=== PATIENT | female | born 1950 | race African-American/Black ===

== ENCOUNTER 2020-03-19 13:46 | IRF | payer OTHER, MEDICARE, SELFPAY ==
--- NOTE | ~2020-03-19 | CT_ITS ---
EXAMINATION: CT brain wo con DATE: 03/27/2020 09:38 INDICATION: Lethargy. TECHNIQUE: Computed tomography (CT) of the head was performed without intravenous contrast. The mA wa s adjusted according to patient size. Iterative reconstruction technique was employed. The dose-lengt h product was 605.33 mGy-cm. COMPARISON: None FINDINGS: There is a hyperdense acute intraparenchymal hematoma centered in the right basal ganglia w ith surrounding vasogenic edema. There is swelling of this area of the brain. There are old lacunar i nfarcts in the bilateral caudate nuclei. There are scattered areas of low attenuation in the cerebral white matter. There is no acute ischemic infarct. There is mass effect on right lateral ventricle an d third ventricle. There is 6 mm leftward midline shift at the foramen of Monro. The paranasal sinuse s are clear. The orbits are normal. The mastoid air cells are normal. IMPRESSION: 1. Acute intraparenchymal hematoma involving the right basal ganglia with 6 mm leftward midline shift . 2. Old lacunar infarcts in the bilateral caudate nuclei. 3. Moderate nonspecific cerebral white matter disease, which likely represents chronic small vessel i schemic disease. Reviewed, dictated and finalized at location A. IMPRESSION: 1. Acute intraparenchymal hematoma involving the right basal ganglia with 6 mm leftward midline shift. 2. Old lacunar infarcts in the bilateral caudate nuclei. 3. Moderate nonspecific cerebral white matter disease, which likely represents chronic small vessel ischemic disease.
--- NOTE | ~2020-03-19 | US_ITS ---
EXAMINATION: US venous doppler [facility] DATE: 04/06/2020 14:17 INDICATION: Lower limb pain and swelling TECHNIQUE: Grayscale ultrasound images without and with compression and Doppler ultrasound images of the bilateral lower extremity veins were obtained. COMPARISON: None. FINDINGS: The visualized portions of right common femoral vein, profunda (deep) femoral vein, femoral vein, pop liteal vein, posterior tibial veins, peroneal veins, gastrocnemius vein and greater saphenous vein ou tflow are patent. One of the paired peroneal veins at the left calf is distended with hypoechoic noncompressible occlus mckay appearing deep venous thrombosis. The second left peroneal vein along with the visualized portion s of left common femoral vein, profunda femoral vein, femoral vein, popliteal vein, posterior tibial veins, gastrocnemius vein and greater saphenous vein outflow are patent. IMPRESSION: 1. Deep venous thrombosis below the knee in one of the paired left peroneal veins of the calf. Findi ngs were discussed with Sarina Perry, the nurse caring for the patient, at 2:25 PM. 2. No right lower limb deep venous thrombosis. Reviewed, dictated and finalized at location A. IMPRESSION: 1. Deep venous thrombosis below the knee in one of the paired left peroneal ve ins of the calf. Findings were discussed with Sarina Perry, the nurse caring for the patient, at 2:25 PM. 2. No right lower limb deep venous thrombosis.
--- NOTE | ~2020-03-19 | CT_ITS ---
EXAMINATION: CT brain wo con DATE: 04/05/2020 09:48 INDICATION: History of CVA. TECHNIQUE: Computed tomography (CT) of the head was performed without intravenous contrast. The dose- length product was 605.33 mGy-cm. The mA was adjusted according to patient size. Iterative reconstruc tion technique was employed. COMPARISON: CT dated 03/27/2020 FINDINGS: There is a maturing intraparenchymal hemorrhage centered in the right basal ganglia with mi ldly decreased surrounding vasogenic edema and mass effect. There is persistent leftward midline shif t, although slightly decreased now measuring 5 mm leftward of midline. Basilar cisterns are patent. T here are scattered moderate periventricular and subcortical white matter changes, most likely related to small vessel ischemic disease (microangiopathy). Chr bilateral lacunar infarctions. Chronic right thalamic infarct. Mild generalized atrophy. No ventriculomegaly. There is intracranial atheroscleros is. Paranasal sinuses and mastoids are pneumatized. No depressed skull fractures. IMPRESSION: 1. Maturing intraparenchymal hemorrhage centered in the right basal ganglia with slight improvement o f surrounding vasogenic edema and mass effect. Persistent midline shift measuring 5 mm to the left. 2: Chronic right thalamic and bilateral lacunar infarctions. 3: Chronic age-related findings. Reviewed, dictated and finalized at location A. IMPRESSION: 1. Maturing intraparenchymal hemorrhage centered in the right basal ganglia wit h slight improvement of surrounding vasogenic edema and mass effect. Persistent midline shift measuring 5 mm to the left. 2: Chronic right thalamic and bilateral lacunar infarctions. 3: Chronic age-related findings.
--- NOTE | ~2020-03-19 | XR_ITS ---
EXAMINATION: XR abdomen/kub 1V INDICATION: PEG tube placement TECHNIQUE: Supine view of the abdomen is obtained COMPARISON: None FINDINGS: A percutaneous gastrostomy projects over the stomach. The bowel gas pattern is normal. Ente zhang contrast from an unknown previous examination is seen in the colon. IMPRESSION: 1. PEG tube projecting over the stomach. Reviewed, dictated and finalized at location A.
[2020-03-19 14:00] VITALS: BP 138/56; PULSE 68; RESP 18; TEMP 36.6; O2SAT 97
[2020-03-19 14:04] VITALS: BMI 28.8
--- NOTE | 2020-03-19 15:22 | ADMGEN ---
This patient, Maxine Fountain, was admitted to [facility] Room 221-01. Patient/family oriented to hospital policies and general routines including ID bracelet, bed and alarms, visiting hours, pain management, procedures, bathroom and other care routines, personal items, smoking policy, room service/diet, and visiting hours. Valuables list has been completed. Information on how to activate the Rapid Response Team has been discussed. Patient/Family are encouraged to report perceived risks to care and to ask questions if they do not understand what they are told or what they should do.
[2020-03-19 16:15] VITALS: PULSE 68; RESP 18; O2SAT 97
--- NOTE | 2020-03-19 17:36 | PC.NURSE ---
Called and talked with Dr. Sanchez Radiologist to ask about KUB result. Wanted to see if nursing could use the peg tube for tube feedings and he clarified and said yes peg tube was in the stomach.
[2020-03-19 17:47] VITALS: PULSE 68
[2020-03-19] MEDS: ACETAMINOPHEN ELIXIR 325 MG/10.15 ML UDC 650 MG FEED TUBE (17:47)
[2020-03-19] MEDS: carvediloL 25 MG TABLET FEED TUBE (17:47)
--- NOTE | 2020-03-19 18:09 | PC.NURSE ---
Patient is unable to answer questions regarding family history. states she doesn't remember.
[2020-03-19 20:37] LABS: Glucose Point of Care 173 (65-105)
[2020-03-19] MEDS: HEPARIN SODIUM 5,000 UNITS/ML VIAL 5000 UNITS SUB-Q (21:01)
[2020-03-19] MEDS: hydrALAZINE HCL 50 MG TABLET 100 MG FEED TUBE (21:03)
[2020-03-19] MEDS: CLONIDINE HCL 0.2 MG TABLET PO (21:03)
[2020-03-19 22:00] VITALS: BP 181/63; PULSE 66; RESP 18; TEMP 37.1; O2SAT 95
[2020-03-20 05:20] LABS: Basophils Percent Auto 0.4 % (0.2-1.2); Eosinophils Absolute Auto 0.2 K/mm3 (0-0.3); Eosinophils Percent Auto 3.4 % (0-4.4); Hematocrit 36.7 % (37.0-47.0); Hemoglobin 11.8 g/dL (12.0-15.0); Immature Granulocyte Absolute 0.08 K/mm3 (0.00-0.031); Immature Granulocyte Percent A 1.2 % (0-0.5); Lymphocytes Absolute Auto 0.91 K/mm3 (0.9-3.2); Lymphocytes Percent Auto 13.6 % (18.3-44.2); Mean Corpuscular HGB Conc 32.2 g/dl (32-36); Mean Corpuscular Hemoglobin 26.3 pg (26-34); Mean Corpuscular Volume 81.9 fl (80-100); Mean Platelet Volume 10.7 fl (7.4-10.4); Monocytes Absolute Auto 0.7 K/mm3 (0.1-0.6); Monocytes Percent Auto 10.4 % (2.6-8.5); Neutrophils Absolute Auto 4.8 K/mm3 (1.3-6.7); Platelet Count Result 309 k/mm3 (150-375); Red Blood Count 4.48 M/mm3 (4.2-5.4); Red Cell Distribution Width 14.6 % (11.5-14.5); White Blood Count 6.7 K/mm3 (4.5-10.0)
[2020-03-20 05:31] LABS: Blood Urea Nitrogen 23 mg/dL (7-17); Calcium 9.4 mg/dL (8.4-10.2); Carbon Dioxide 23 mmol/L (22-30); Chloride 107 mmol/L (98-107); Cholesterol 166 mg/dL (0-200); Estimated CRCL calculation 34 ml/min; Estimated Glomerular Filt Rate 54; Glucose 124 mg/dL (65-105); HDL Direct 30 mg/dL; Hemoglobin A1C 5.7 % (<5.7); Potassium 4.4 mmol/L (3.4-5.0); Sodium 135 mmol/L (137-145); Triglycerides 138 mg/dL (<150)
[2020-03-20 05:42] LABS: LDL Cholesterol Direct 99 mg/dL
[2020-03-20 06:00] VITALS: BP 174/90; PULSE 78; RESP 19; TEMP 37; O2SAT 94
[2020-03-20] MEDS: CLONIDINE HCL 0.2 MG TABLET PO ×3 (06:09→22:52)
[2020-03-20] MEDS: HEPARIN SODIUM 5,000 UNITS/ML VIAL 5000 UNITS SUB-Q ×3 (06:09→22:35)
[2020-03-20] MEDS: hydrALAZINE HCL 50 MG TABLET 100 MG FEED TUBE ×3 (06:09→22:38)
[2020-03-20 06:49] LABS: Glucose Point of Care 140 (65-105)
[2020-03-20 08:05] VITALS: BMI 10.0
--- NOTE | 2020-03-20 10:30 | WPDREHABHP ---
H&P: HPI History of Present Illness Chief complaint: stroke Narrative: Maxine Fountain is a 69 year old female HISTORY OF PRESENT ILLNESS: The patient's primary rehab impairment category is Stroke The etiologic diagnosis is right basal ganglia hemorrhagic stroke I saw this patient [id number] on March 20, 2020 at 10:30 a.m. The patient is a 69-year-old right-handed Afro [place] woman with past medical history of hypertension, hyperlipidemia, osteopenia and prior stroke who presented to [facility] on March 09, 2020 after being found on the floor by her daughter . EMS were summoned and she was taken to the hospital where the blood pressure was greater than 230 systolic. Physically she presented with left-sided weakness right gaze deviation and mild dysarthria. Head CT revealed right basal ganglia hemorrhage 5.4 x 4.0 centimeter in the greatest dimensions with mass effect and effacement of theRight lateral ventricle leading to a 4 millimeter leftward midline shift. There was a trace right ventricular intraventricular hemorrhage without hydrocephalus. CT was negative for vascular malformations. She was transferred to [facility] for the same day for further management. The patient was admitted to ICU under Neurology Services. Neurosurgery was consulted and felt that was not need for neurosurgical intervention. Hemorrhage likely due to hypertensive emergency. All anticoagulants and antiplatelets were held. During this hospital since she has experienced hyperglycemia acute kidney injury and hypertensive emergency. She passed a swallowing study and was placed on a pre diet with thin liquids. Patient has had NG tube to increase nutritional intake and the physician consulted for 16 to see if PEG tube is needed. PEG tube was appraised March 16, 2020 and tube feeding is at goal. Physical examination continues to reveal left-sided hemiplegia left-sided neglect and dysarthria significantly decreased gross motor controlled decreased safety awareness impaired balance and impaired judgment insight patient's remains awake alert x3 with right hemispheric deficit. She is discharged to us on heparin subcu for DVT prophylaxis. To the best of my knowledge the patient has not traveled outside the [place] in the previous 3 weeks likewise she has not traveled to an area of pandemic where Coronavirus is probable aunt she denies any fever chills sore throat or any upper or lower respiratory symptoms Therapy was initiated at the acute care facility and the patient transferred to us from [facility] on March 19, 2020 on FALLS OR SURGERIES: The patient has had no major surgeries in the 100 days prior to admission. They had no falls in the past year. They had no falls with injury in the past year. PAST MEDICAL HISTORY: hypertension and stroke PAST SURGICAL HISTORY: none SOCIAL HISTORY: patient is and lives with her daughter and grandchildren in a multilevel home with 4 steps to enter. 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 Daughter is very supportive and plans for mom return home with assistance as needed. She is a never smoker no alcohol or drug use FAMILY HISTORY: patient herself is unable to recall any family history however I will review records from the [facility] to see if there is any significant family history PRIOR LEVEL OF FUNCTION: Eating was INDEPENDENT Oral Care was INDEPENDENT Toileting Hygiene was INDEPENDENT Shower/Bathing was INDEPENDENT Upper Body Dressing was INDEPENDENT Lower Body Dressing was INDEPENDENT Donning/[place] Footwear was INDEPENDENT Rolling Left and Right was INDEPENDENT Sit to Lying was INDEPENDENT Lying to Sitting was INDEPENDENT Sit to Stand was INDEPENDENT Bed to Chair Transfers was I
--- NOTE | 2020-03-20 11:45 | PCOTNOTE ---
Initiated OT evaluation, but unable to complete entirely. Will complete further this afternoon.
[2020-03-20 11:47] VITALS: PULSE 76
[2020-03-20] MEDS: carvediloL 25 MG TABLET FEED TUBE (11:47)
[2020-03-20] MEDS: AMLODIPINE BESYLATE 5 MG TABLET 10 MG FEED TUBE (11:47)
[2020-03-20 12:41] LABS: Glucose Point of Care 156 (65-105)
[2020-03-20] MEDS: ACETAMINOPHEN ELIXIR 325 MG/10.15 ML UDC 650 MG FEED TUBE (12:48)
[2020-03-20 14:00] VITALS: BP 202/77; PULSE 96; RESP 20; TEMP 36.9; O2SAT 98
[2020-03-20 14:24] VITALS: BMI 28.8
--- NOTE | 2020-03-20 16:40 | PC.NURSE ---
Dr. Sorto called re: BP 202/77 and I gave her scheduled hydralazine 100mg and clonidine 0.2mg -an hour later BP 170/65 HR74-he increased coreg to 50mg po BID
[2020-03-20 17:27] LABS: Glucose Point of Care 146 (65-105)
[2020-03-20 21:43] LABS: Glucose Point of Care 123 (65-105)
[2020-03-20 22:00] VITALS: BP 181/78; PULSE 79; RESP 20; TEMP 36.5; O2SAT 99
[2020-03-20] MEDS: carvediloL 25 MG TABLET 50 MG FEED TUBE (22:35)
[2020-03-21 06:00] VITALS: BP 159/56; PULSE 56; RESP 18; TEMP 37.2; O2SAT 94
[2020-03-21] MEDS: HEPARIN SODIUM 5,000 UNITS/ML VIAL 5000 UNITS SUB-Q ×3 (06:08→21:10)
[2020-03-21] MEDS: CLONIDINE HCL 0.2 MG TABLET PO ×3 (06:08→22:25)
[2020-03-21] MEDS: hydrALAZINE HCL 50 MG TABLET 100 MG FEED TUBE ×3 (06:08→21:10)
[2020-03-21 06:33] LABS: Glucose Point of Care 139 (65-105)
[2020-03-21] MEDS: AMLODIPINE BESYLATE 5 MG TABLET 10 MG FEED TUBE (08:56)
[2020-03-21 08:57] VITALS: PULSE 56
[2020-03-21] MEDS: carvediloL 25 MG TABLET 50 MG FEED TUBE ×2 (08:57→21:10)
[2020-03-21] MEDS: ACETAMINOPHEN ELIXIR 325 MG/10.15 ML UDC 650 MG FEED TUBE (09:45)
--- NOTE | 2020-03-21 12:35 | WPDNEURORHBP ---
Subjective Date/time seen: 03/21/20 12:35 Interval history: this 69-year-old Afro-Albanian woman is here up driving right hemispheric/right basal ganglia hemorrhagic stroke which has left her with significant left-sided hemiplegia khanh sensory deficit left-sided neglect and right-sided gaze preference Patient denies any headache nausea vomiting chest pain shortness of breath fever chills or sore throat Review of Systems Review of Systems: All systems reviewed & are unremarkable except as noted in HPI and below Functional Status Transfers Ability Ability to Transfer In/Out of Chair: Maximum Assistance X 2 Exam Const: General: comfortable and no acute distress HENMT: General nose exam: Normal nares present Mouth: Yes moist mucous membranes Eyes: General: appearance normal, both eyes and all related structures Neck: Neck: supple and no JVD Resp: Effort & Inspection: normal respiratory effort Auscultation: clear to auscultation bilaterally Cardio: Rate: regular rate Rhythm: regular rhythm GI: GI Palp: Yes Soft to palpation Auscultation: normal bowel sounds Skin: General skin exam: normal color and no rashes or lesions noted Neuro: Other: patient is awake and alert oriented x3 follows all commands has rather dense left-sided hemiparesis with brisk reflexes positive Babinski total disability to perform the activities of daily living on her own overall picture is stable making little progress Extrem: General: normal to inspection Psych: Mental Status: mental status grossly normal Objective Data Vital Signs Vital Signs: Vital Signs - 24 hr 03/20/20 14:00 03/20/20 22:00 03/21/20 06:00 Temperature 36.9 C 36.5 C 37.2 C Pulse Rate 96 79 56 L Respiratory Rate 18 Blood Pressure 202/77 H 181/78 H 159/56 H Pulse Oximetry 98 99 94 03/21/20 08:57 Temperature Pulse Rate 56 L Respiratory Rate Blood Pressure Pulse Oximetry Intake/Output Intake/Output: Intake & Output 03/18/20 03/19/20 03/20/20 03/21/20 23:59 23:59 23:59 23:59 Intake Total 2130 950 Balance 2130 950 Meds/Results Medications: Active Medications Generic Name Dose Route Start Last Admin Trade Name Freq PRN Reason Stop Dose Admin Acetaminophen 650 mg 03/19/20 14:42 03/21/20 09:45 Tylenol Elixir FEED TUBE 650 mg Q6H PRN Administration Pain (Scale Score 4-6) Amlodipine Besylate 10 mg 03/20/20 09:00 03/21/20 08:56 Norvasc FEED TUBE 10 mg DAILY SIXTO Administration Carvedilol 50 mg 03/20/20 21:00 03/21/20 08:57 Coreg FEED TUBE 50 mg Q12HR SIXTO Administration Clonidine HCl 0.2 mg 03/19/20 15:05 03/21/20 06:08 Catapres PO 0.2 mg Q8H SIXTO Administration Heparin Sodium (Porcine) 5,000 units 03/19/20 14:00 03/21/20 06:08 Heparin Sodium SUB-Q 5,000 units Q8H SIXTO Administration Hydralazine HCl 100 mg 03/19/20 14:00 03/21/20 06:08 Apresoline Tablet FEED TUBE 100 mg Q8H SIXTO Administration Senna 8.6 mg 03/19/20 14:42 Senokot Tablet FEED TUBE DAILY PRN Constipation Sodium Chloride 2 spray 03/19/20 14:42 [place] Nasal [place] NASAL Q2H PRN Nasal Congestion Radiology Results: ITS Impressions Abdomen X-Ray 03/19/20 16:41 IMPRESSION: 1. PEG tube projecting over the stomach. Labs Labs: Laboratory Results - last 24 hr 03/20/20 03/20/20 03/20/20 12:37 17:25 21:39 POC Capillary Glucose 156 H 146 H 123 H 03/21/20 06:27 POC Capillary Glucose 139 H Progress Note: A&P Assessment and Plan (1) Hypertension: Code(s): I10 - Essential (primary) hypertension Status: Acute (2) Left-sided neglect: Code(s): R41.4 - Neurologic neglect syndrome Status: Acute (3) Left hemiplegia: Code(s): G81.94 - Hemiplegia, unspecified affecting left nondominant side Status: Acute (4) Basal ganglia hemorrhage: Code(s): I61.0 - Nontraumatic intracerebral hemorrhage in
--- NOTE | 2020-03-21 13:45 | PCOTNOTE ---
Attempted OT treatment, but unable to complete as patient just returned to bed and unable to keep awake to participate. Will attempt again later this afternoon.
[2020-03-21 14:00] VITALS: BP 184/65; PULSE 57; RESP 16; TEMP 36.3; O2SAT 97
--- NOTE | 2020-03-21 15:02 | RPD ---
INDIVIDUALIZED PLAN OF CARE FOR Maxine Fountain Brief Synthesis of Pre-Admission Screen, Post-Admission Evaluation and Therapy Evaluations: The patient presents to rehab with right basal ganglia hemorrhagic stroke. Comorbidities include hypertension, hyperlipidemia, prior CVA, osteopenia, dysarthria, dysphagia, acute kidney injury, hypochromic microcytic anemia, acute encephalopathy, left hemiparesis, left hemiparesthesia, hyperglycemia, hypertensive emergency, anion gap metabolic acidosis, left facial droop, expressive aphasia. The patient requires physician services for neurology services, medical oversight, and coordination of care. Emotional needs will be monitored as depression is a common sequelae of stroke. The patient needs physician monitoring and treatment o f hyperglycemia, acute kidney injury, hypertensive emergency, monitoring for adverse reactions to new medications, monitoring of infection, and pain control. The patient requires nursing services for frequent neuro checks, anticoagulation therapy, medication management and education, pressure relief and skin care management, monitoring of labs, bowel and bladder training, blood glucose / hyperglycemia management and education, and fall/safety precautions. Deficits include:ADLs, Balance, Cognition, Endurance, Family Training/Education, Mobility, Pain Management, ROM, Safety, Speech, Strength, Swallowing, Transfers Limb Driver/Case Management for: Discharge Planning and Patient/Family Counseling Physical Therapy: 5 days per week for 60 minutes. Treatments may include: Therapeutic Exercise, Gait Training, Neuromuscular Re-education, Transfer Training, Community Reintegration, Bed Mobility, Patient/Family Education, Wheelchair Mobility Group Therapy/Concurrent Therapy Rationales: -Improve attention span during functional activities in a distracted environment. -Enhance problem solving and/or adequate judgment skills during functional activities in a distracted environment. -Promote increased safety awareness in a distracted environment to reduce fall risk with functional tasks, transfers, and ambulation to allow a more safe, self-sufficient return to the home environment. -Improve dynamic balance skills to promote safety and independence with functional activities in a distracted environment for maximum gain. Occupational Therapy: 5 days per week for 60 minutes. Treatments may include: Therapeutic Exercise, Therapeutic Activity, Cognitive Training, Self-Care Transfer Training, Community Reintegration, Home Management, Patient/Family Education, Wheelchair Mobility Training, Energy Conservation Training Group Therapy/Concurrent Therapy Rationales: -Allow therapist to observe and teach generalization and carry-over of skills learned in individual therapy. -Enhance problem solving and sequencing skills during therapeutic activities in a distracted environment. -Promote increased safety awareness in a realistic setting to reduce fall risk with functional tasks due to visual and verbal distractions. -Increase functional level with ADLs, ADL transfers and use of adaptive equipment through therapeutic activities with others while promoting safety to allow a more safe, self-sufficient return home. Speech Therapy: 5 days per week for 60 minutes. Treatments may include: Dysphasia Therapy, Speech/Language/Communication Therapy, Cognitive Training, Patient/Family Education Group Therapy/Concurrent Therapy - Rationale: -Allow therapist to observe and teach generalization and carry-over of skills learned in individual therapy. -Improve comprehension skills with complex or abstract ideas through discussion in a realistic setting. -Enhance problem solving skills with complex issues during activities in a distracted environment. -Promote increased memory skills and concentration in a distracted environment for a safe transition home. -Improve attention and focus with language/communication skills in a realistic and suppo
[2020-03-21 17:20] LABS: Glucose Point of Care 127 (65-105)
[2020-03-21 20:00] VITALS: BP 129/49; PULSE 63; RESP 20; TEMP 37.1; O2SAT 98
[2020-03-21 21:10] VITALS: PULSE 78
[2020-03-21 21:46] LABS: Glucose Point of Care 125 (65-105)
[2020-03-22 06:00] VITALS: BP 138/51; PULSE 56; RESP 16; TEMP 37.1; O2SAT 95
[2020-03-22] MEDS: HEPARIN SODIUM 5,000 UNITS/ML VIAL 5000 UNITS SUB-Q ×3 (06:23→21:03)
[2020-03-22] MEDS: hydrALAZINE HCL 50 MG TABLET 100 MG FEED TUBE ×3 (06:24→21:01)
[2020-03-22] MEDS: CLONIDINE HCL 0.2 MG TABLET PO ×3 (06:42→21:02)
[2020-03-22 07:05] LABS: Glucose Point of Care 138 (65-105)
[2020-03-22] MEDS: AMLODIPINE BESYLATE 5 MG TABLET 10 MG FEED TUBE (08:48)
[2020-03-22 08:49] VITALS: PULSE 56
[2020-03-22] MEDS: carvediloL 25 MG TABLET 50 MG FEED TUBE ×2 (08:49→21:02)
[2020-03-22] MEDS: ACETAMINOPHEN ELIXIR 325 MG/10.15 ML UDC 650 MG FEED TUBE (09:49)
--- NOTE | 2020-03-22 11:36 | WPDNEURORHBP ---
Subjective Date/time seen: 03/22/20 11:36 Interval history: this 69-year-old woman is here with significant right hemispheric stroke with the significant left-sided almost hemiplegia the patient has been periodically sleepy and complaining of headache for which I had initiated small dose of narcotic to see with responses otherwise no vomiting no nausea no chest pain no shortness of breath no fever no chills no sore throat Review of Systems Review of Systems: All systems reviewed & are unremarkable except as noted in HPI and below Functional Status Transfers Ability Ability to Transfer In/Out of Chair: Maximum Assistance X 1 Exam Const: General: comfortable and no acute distress HENMT: General nose exam: Normal nares present Mouth: Yes moist mucous membranes Eyes: General: appearance normal, both eyes and all related structures Neck: Neck: supple and no JVD Resp: Effort & Inspection: normal respiratory effort Auscultation: clear to auscultation bilaterally Cardio: Rate: regular rate Rhythm: regular rhythm GI: GI Palp: Yes Soft to palpation Other: G tube is functioning well Skin: General skin exam: normal color and no rashes or lesions noted Neuro: Other: patient is periodically drowsy and fatigued however does have periods of time where she is more alert more cooperative working with therapy there is no clear clinical signs of any worsening in overall neurological state the left-sided remains significantly weak needing assistance is all the activities of daily living the neck is supple no evidence of chronic is or Brudzinski's sign Extrem: General: normal to inspection Psych: Other: because of drowsiness and sleepy state is difficult to examine her overall psychological state however she seems to be oriented in time place and person and whenever she is able to talk in awake state her speech is showing no sign of deterioration and she is able to talk to her granddaughter well on telephone Objective Data Vital Signs Vital Signs: Vital Signs - 24 hr 03/22/20 14:00 03/22/20 21:02 03/22/20 22:00 Temperature 36.3 C L 36.9 C Pulse Rate 55 L 88 59 L Respiratory Rate 18 16 Blood Pressure 145/58 H 143/64 H Pulse Oximetry 95 98 03/23/20 06:00 03/23/20 08:59 Temperature 37.0 C Pulse Rate 55 L 55 L Respiratory Rate 18 Blood Pressure 142/46 H Pulse Oximetry 94 Intake/Output Intake/Output: Intake & Output 03/20/20 03/21/20 03/22/20 03/23/20 23:59 23:59 23:59 23:59 Intake Total 0 1940 1680 1230 Balance 2129 1939 1680 1230 Meds/Results Medications: Active Medications Generic Name Dose Route Start Last Admin Trade Name Freq PRN Reason Stop Dose Admin Acetaminophen 650 mg 03/19/20 14:42 03/22/20 09:49 Tylenol Elixir FEED TUBE 650 mg Q6H PRN Administration Pain (Scale Score 4-6) Hydrocodone Bitart/Acetaminophen 1 tab 03/22/20 12:00 03/23/20 06:10 [place] 5-325 Mg FEED TUBE 1 tab Q6H SIXTO Administration Amlodipine Besylate 10 mg 03/20/20 09:00 03/23/20 08:59 Norvasc FEED TUBE 10 mg DAILY SIXTO Administration Carvedilol 50 mg 03/20/20 21:00 03/23/20 08:59 Coreg FEED TUBE 50 mg Q12HR SIXTO Administration Clonidine HCl 0.2 mg 03/19/20 15:05 03/23/20 06:10 Catapres PO 0.2 mg Q8H SIXTO Administration Heparin Sodium (Porcine) 5,000 units 03/19/20 14:00 03/23/20 06:07 Heparin Sodium SUB-Q 5,000 units Q8H SIXTO Administration Hydralazine HCl 100 mg 03/19/20 14:00 03/23/20 06:10 Apresoline Tablet FEED TUBE 100 mg Q8H SIXTO Administration Senna 8.6 mg 03/19/20 14:42 Senokot Tablet FEED TUBE DAILY PRN Constipation Sodium Chloride 2 spray 03/19/20 14:42 [place] Nasal [place] NASAL Q2H PRN Nasal Congestion Radiology Results: ITS Impressions Abdomen X-Ray 03/19/20 16:41 IMPRESSION: 1. PEG tube projecting over the stomach. Labs Labs: Laboratory Results - last 24 hr 03/01
[2020-03-22 12:09] LABS: Glucose Point of Care 145 (65-105)
[2020-03-22 14:00] VITALS: BP 145/58; PULSE 55; RESP 18; TEMP 36.3; O2SAT 95
[2020-03-22 16:45] LABS: Glucose Point of Care 116 (65-105)
[2020-03-22 21:00] LABS: Glucose Point of Care 126 (65-105)
[2020-03-22 21:02] VITALS: PULSE 88
[2020-03-22 22:00] VITALS: BP 143/64; PULSE 59; RESP 16; TEMP 36.9; O2SAT 98
[2020-03-23 06:00] VITALS: BP 142/46; PULSE 55; RESP 18; TEMP 37; O2SAT 94
[2020-03-23] MEDS: HEPARIN SODIUM 5,000 UNITS/ML VIAL 5000 UNITS SUB-Q ×3 (06:07→21:38)
[2020-03-23] MEDS: CLONIDINE HCL 0.2 MG TABLET PO ×3 (06:10→21:39)
[2020-03-23] MEDS: hydrALAZINE HCL 50 MG TABLET 100 MG FEED TUBE ×3 (06:10→21:38)
[2020-03-23 06:58] LABS: Glucose Point of Care 136 (65-105)
[2020-03-23 08:59] VITALS: PULSE 55
[2020-03-23] MEDS: AMLODIPINE BESYLATE 5 MG TABLET 10 MG FEED TUBE (08:59)
[2020-03-23] MEDS: carvediloL 25 MG TABLET 50 MG FEED TUBE ×2 (08:59→21:38)
[2020-03-23 10:00] VITALS: BMI 10.0
--- NOTE | 2020-03-23 11:38 | PCDIET ---
Nutrition Follow-Up Complete: Nutrition Diagnosis: Inadequate oral intake related to decreased appetite/dysphagia as evidenced by intakes 50% on pureed diet with PEG placement. Nutrition Goal: Patient to meet estimated nutritional needs. Goal in progress. Patient only consuming ~30% of meals, on average; however, tube feedings providing additional 864kcal and 40g protein. Recommend continuing Jevity 1.2 at 60mL/hr x 12 hours overnight. Agree with pureed, diabetic diet. Last recorded weight is 66.9 kg. Recommend obtaining new weight. Bowel Motility: +BM on 03/22/20. Labs Reviewed: Glu (136) Meds Noted: Senna prn Additional Notes: No skin breakdown reported. Recommend continuing to monitor with same goal. Nutrition Monitoring and Evaluation: Follow up every Thursday/Thursday.
[2020-03-23 12:08] LABS: Glucose Point of Care 126 (65-105)
--- NOTE | 2020-03-23 13:47 | WPDNEURORHBP ---
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 she is stable making little progress fluctuating awareness and also mental status not complaining as much of headache as she did before afebrile remains any nausea vomiting chest pain shortness of breath fever chills or sore throat Review of Systems Review of Systems: All systems reviewed & are unremarkable except as noted in HPI and below Functional Status Transfers Ability Ability to Transfer In/Out of Chair: Maximum Assistance X 1 Exam Const: General: comfortable and no acute distress HENMT: General nose exam: Normal nares present Mouth: Yes moist mucous membranes Eyes: General: appearance normal, both eyes and all related structures Neck: Neck: supple and no JVD Resp: Effort & Inspection: normal respiratory effort Auscultation: clear to auscultation bilaterally Cardio: Rate: regular rate Rhythm: regular rhythm GI: GI Palp: Yes Soft to palpation Auscultation: normal bowel sounds Skin: General skin exam: normal color and no rashes or lesions noted Neuro: Other: patient is sleepy during the afternoon in the morning she is relatively better follows commands awake and alert during the examination is oriented x3 with significant left-sided hemiplegia will little progress at this point Extrem: General: normal to inspection Psych: Other: difficult to assess the mental faculties because of the right hemispheric deficit along with left-sided neglect left-sided hemiplegia and left-sided visual field defect Objective Data Vital Signs Vital Signs: Vital Signs - 24 hr 03/22/20 14:00 03/22/20 21:02 03/22/20 22:00 Temperature 36.3 C L 36.9 C Pulse Rate 55 L 88 59 L Respiratory Rate 18 16 Blood Pressure 145/58 H 143/64 H Pulse Oximetry 95 98 03/23/20 06:00 03/23/20 08:59 Temperature 37.0 C Pulse Rate 55 L 55 L Respiratory Rate 18 Blood Pressure 142/46 H Pulse Oximetry 94 Intake/Output Intake/Output: Intake & Output 03/20/20 03/21/20 03/22/20 03/23/20 23:59 23:59 23:59 23:59 Intake Total 2129 1939 1680 1350 Balance 2129 1939 1680 1350 Meds/Results Medications: Active Medications Generic Name Dose Route Start Last Admin Trade Name Freq PRN Reason Stop Dose Admin Acetaminophen 650 mg 03/19/20 14:42 03/22/20 09:49 Tylenol Elixir FEED TUBE 650 mg Q6H PRN Administration Pain (Scale Score 4-6) Hydrocodone Bitart/Acetaminophen 0.5 tab 03/23/20 11:55 03/23/20 13:16 [place] 5-325 Mg FEED TUBE 0.5 tab Q6H SIXTO Administration Amlodipine Besylate 10 mg 03/20/20 09:00 03/23/20 08:59 Norvasc FEED TUBE 10 mg DAILY SIXTO Administration Carvedilol 50 mg 03/20/20 21:00 03/23/20 08:59 Coreg FEED TUBE 50 mg Q12HR SIXTO Administration Clonidine HCl 0.2 mg 03/23/20 22:00 Catapres PO Q8H SIXTO Heparin Sodium (Porcine) 5,000 units 03/19/20 14:00 03/23/20 13:17 Heparin Sodium SUB-Q 5,000 units Q8H SIXTO Administration Hydralazine HCl 100 mg 03/19/20 14:00 03/23/20 13:17 Apresoline Tablet FEED TUBE 100 mg Q8H SIXTO Administration Senna 8.6 mg 03/19/20 14:42 Senokot Tablet FEED TUBE DAILY PRN Constipation Sodium Chloride 2 spray 03/19/20 14:42 [place] Nasal [place] NASAL Q2H PRN Nasal Congestion Radiology Results: ITS Impressions Abdomen X-Ray 03/19/20 16:41 IMPRESSION: 1. PEG tube projecting over the stomach. Labs Labs: Laboratory Results - last 24 hr 03/22/20 03/22/20 03/23/20 16:43 20:55 06:49 POC Capillary Glucose 116 H 126 H 136 H 03/23/20 11:46 POC Capillary Glucose 126 H Progress Note: A&P Assessment and Plan (1) Hypertension: Code(s): I10 - Essential (primary) hypertension Status: Acute (2) Left-sided neglect: Code(s): R41.4 - Neur
[2020-03-23 14:00] VITALS: BP 142/54; PULSE 50; RESP 19; TEMP 36.2; O2SAT 99
[2020-03-23 17:20] LABS: Glucose Point of Care 109 (65-105)
[2020-03-23 21:45] LABS: Glucose Point of Care 147 (65-105)
[2020-03-23 21:51] VITALS: BP 127/51; PULSE 58; RESP 20; TEMP 36.8; O2SAT 96
[2020-03-24] MEDS: ACETAMINOPHEN ELIXIR 325 MG/10.15 ML UDC 650 MG FEED TUBE (03:25)
[2020-03-24] MEDS: HEPARIN SODIUM 5,000 UNITS/ML VIAL 5000 UNITS SUB-Q ×3 (05:54→20:55)
[2020-03-24] MEDS: CLONIDINE HCL 0.2 MG TABLET PO ×3 (05:54→20:54)
[2020-03-24] MEDS: hydrALAZINE HCL 50 MG TABLET 100 MG FEED TUBE ×3 (05:56→20:54)
[2020-03-24 06:00] VITALS: BP 162/66; PULSE 62; RESP 20; TEMP 36.9; O2SAT 96
[2020-03-24 06:49] LABS: Glucose Point of Care 137 (65-105)
[2020-03-24 08:00] VITALS: PULSE 62; RESP 20; O2SAT 96
[2020-03-24 08:30] VITALS: O2SAT 96
[2020-03-24 09:02] VITALS: PULSE 62
[2020-03-24] MEDS: AMLODIPINE BESYLATE 5 MG TABLET 10 MG FEED TUBE (09:02)
[2020-03-24] MEDS: carvediloL 25 MG TABLET 50 MG FEED TUBE ×2 (09:02→20:53)
[2020-03-24 12:03] LABS: Glucose Point of Care 100 (65-105)
[2020-03-24 14:00] VITALS: BP 138/78; PULSE 74; RESP 20; TEMP 36.1; O2SAT 95
[2020-03-24 16:56] LABS: Glucose Point of Care 114 (65-105)
[2020-03-24 20:38] VITALS: BP 134/54; PULSE 59; RESP 18; TEMP 36.7; O2SAT 97
[2020-03-24 21:04] LABS: Glucose Point of Care 139 (65-105)
[2020-03-25] MEDS: hydrALAZINE HCL 50 MG TABLET 100 MG FEED TUBE ×3 (05:09→22:03)
[2020-03-25] MEDS: HEPARIN SODIUM 5,000 UNITS/ML VIAL 5000 UNITS SUB-Q ×3 (05:09→22:03)
[2020-03-25] MEDS: CLONIDINE HCL 0.2 MG TABLET PO ×3 (05:10→22:03)
[2020-03-25 05:20] VITALS: BP 153/97; PULSE 69; RESP 18; TEMP 36.8; O2SAT 97
[2020-03-25 06:55] LABS: Glucose Point of Care 122 (65-105)
[2020-03-25 08:00] VITALS: PULSE 70; RESP 18; O2SAT 97
[2020-03-25 09:03] VITALS: PULSE 70
[2020-03-25] MEDS: carvediloL 25 MG TABLET 50 MG FEED TUBE ×2 (09:03→20:23)
[2020-03-25] MEDS: AMLODIPINE BESYLATE 5 MG TABLET 10 MG FEED TUBE (09:03)
--- NOTE | 2020-03-25 10:27 | WPDNEURORHBP ---
Subjective Date/time seen: 03/25/20 10:27 S/P right basal gangliar hemorrhage with left hemiplegia doing fair with no specific complaints Functional Status Transfers Ability Ability to Transfer In/Out of Chair: Maximum Assistance X 1 Exam Const: General: no acute distress, alert and awake Nutritional Appearance: average body habitus Limitations: other limitations Eyes: General: appearance normal, both eyes and all related structures Alignment and Position: alignment normal Eyelids: eyelids normal Conjunctivae: conjunctivae normal Sclera: sclerae normal Cornea: corneas normal Pupils: Equal, round and reactive pupils present EOM: EOMs intact bilaterally Neck: Neck: full ROM Carotids: normal carotid upstroke Lymphatic: no lymphadenopathy noted Resp: Auscultation: clear to auscultation bilaterally Cardio: Rate: regular rate Rhythm: regular rhythm GI: Auscultation: normal bowel sounds Skin: General skin exam: no rashes or lesions noted Neuro: General: oriented to person and oriented to place Cranial nerves: Yes Equal, round and reactive pupils present, Yes Bilaterally intact EOM present, Yes Nystagmus not present, Yes Normal facial strength present, Yes Midline tongue present and Yes Ability to bilaterally rotate head present Cognition (Neuro): normal cognition Speech: normal speech (follows well) Gait exam (Neuro): Unable to assess gait Motor exam (neuro): Abnormal motor strength present (left hemiplegia) Psych: Affect: normal affect Attitude: cooperative Thought process: Normal thought process present Thought content: Yes Normal thought content present Insight: Fair insight present (Psych) Judgement: Fair judgement present (Psych) Objective Data Vital Signs Vital Signs: Vital Signs - 24 hr 03/24/20 14:00 03/24/20 20:38 03/25/20 05:20 Temperature 36.1 C L 36.7 C 36.8 C Pulse Rate 74 59 L 69 Respiratory Rate 20 18 18 Blood Pressure 138/78 134/54 L 153/97 H Pulse Oximetry 95 97 97 03/25/20 09:03 Temperature Pulse Rate 70 Respiratory Rate Blood Pressure Pulse Oximetry Intake/Output Intake/Output: Intake & Output 03/22/20 03/23/20 03/24/20 03/25/20 23:59 23:59 23:59 23:59 Intake Total 1680 1830 120 Balance 1680 1830 120 Meds/Results Medications: Active Medications Generic Name Dose Route Start Last Admin Trade Name Freq PRN Reason Stop Dose Admin Acetaminophen 650 mg 03/19/20 14:42 03/24/20 03:25 Tylenol Elixir FEED TUBE 650 mg Q6H PRN Administration Pain (Scale Score 4-6) Hydrocodone Bitart/Acetaminophen 0.5 tab 03/23/20 11:55 03/25/20 05:10 [place] 5-325 Mg FEED TUBE 0.5 tab Q6H SIXTO Administration Amlodipine Besylate 10 mg 03/20/20 09:00 03/25/20 09:03 Norvasc FEED TUBE 10 mg DAILY SIXTO Administration Carvedilol 50 mg 03/20/20 21:00 03/25/20 09:03 Coreg FEED TUBE 50 mg Q12HR SIXTO Administration Clonidine HCl 0.2 mg 03/23/20 22:00 03/25/20 05:10 Catapres PO 0.2 mg Q8H SIXTO Administration Heparin Sodium (Porcine) 5,000 units 03/19/20 14:00 03/25/20 05:09 Heparin Sodium SUB-Q 5,000 units Q8H SIXTO Administration Hydralazine HCl 100 mg 03/19/20 14:00 03/25/20 05:09 Apresoline Tablet FEED TUBE 100 mg Q8H SIXTO Administration Senna 8.6 mg 03/19/20 14:42 Senokot Tablet FEED TUBE DAILY PRN Constipation Sodium Chloride 2 spray 03/19/20 14:42 [place] Nasal [place] NASAL Q2H PRN Nasal Congestion Radiology Results: ITS Impressions Abdomen X-Ray 03/19/20 16:41 IMPRESSION: 1. PEG tube projecting over the stomach. Labs Labs: Laboratory Results - last 24 hr 03/24/20 03/24/20 03/24/20 12:01 16:54 20:51 POC Capillary Glucose 100 114 H 139 H 03/25/20 06:45 POC Capillary Glucose 122 H Progress Note: A&P Assessment and Plan (1) Hypertension: Code(s): I10 - Essential (primary) hypertension Status: Acute (2) Left-sided negl
[2020-03-25 11:57] LABS: Glucose Point of Care 114 (65-105)
[2020-03-25 14:00] VITALS: BP 130/74; PULSE 60; RESP 18; TEMP 36.1; O2SAT 98
[2020-03-25 16:57] LABS: Glucose Point of Care 118 (65-105)
[2020-03-25 20:23] VITALS: PULSE 70
[2020-03-25 20:33] LABS: Glucose Point of Care 137 (65-105)
[2020-03-25 22:00] VITALS: BP 111/54; PULSE 58; RESP 18; TEMP 36.6; O2SAT 98
[2020-03-26] MEDS: hydrALAZINE HCL 50 MG TABLET 100 MG FEED TUBE ×3 (05:19→20:54)
[2020-03-26] MEDS: CLONIDINE HCL 0.2 MG TABLET PO ×3 (05:19→20:53)
[2020-03-26] MEDS: HEPARIN SODIUM 5,000 UNITS/ML VIAL 5000 UNITS SUB-Q ×3 (05:19→20:54)
[2020-03-26 06:00] VITALS: BP 145/68; PULSE 75; RESP 16; TEMP 37.7; O2SAT 96
[2020-03-26 07:02] LABS: Glucose Point of Care 126 (65-105)
[2020-03-26 10:51] VITALS: PULSE 78
[2020-03-26] MEDS: AMLODIPINE BESYLATE 5 MG TABLET 10 MG FEED TUBE (10:51)
[2020-03-26] MEDS: carvediloL 25 MG TABLET 50 MG FEED TUBE ×2 (10:51→20:51)
[2020-03-26] MEDS: CYCLOBENZAPRINE HCL 5 MG TABLET PO ×2 (10:54→20:53)
[2020-03-26 11:56] LABS: Glucose Point of Care 115 (65-105)
[2020-03-26 14:00] VITALS: BP 151/54; PULSE 66; RESP 18; TEMP 37.3; O2SAT 98
[2020-03-26 17:06] LABS: Glucose Point of Care 110 (65-105)
[2020-03-26 20:51] VITALS: PULSE 78
[2020-03-26 20:59] LABS: Glucose Point of Care 138 (65-105)
[2020-03-26 22:00] VITALS: BP 151/58; PULSE 65; RESP 19; TEMP 37; O2SAT 96
[2020-03-27 04:42] LABS: Basophils Percent Auto 0.9 % (0.2-1.2); Eosinophils Absolute Auto 0.2 K/mm3 (0-0.3); Eosinophils Percent Auto 3.5 % (0-4.4); Hemoglobin 9.9 g/dL (12.0-15.0); Immature Granulocyte Absolute 0.02 K/mm3 (0.00-0.031); Immature Granulocyte Percent A 0.4 % (0-0.5); Lymphocytes Absolute Auto 1.07 K/mm3 (0.9-3.2); Lymphocytes Percent Auto 23.1 % (18.3-44.2); Mean Corpuscular HGB Conc 31.9 g/dl (32-36); Mean Corpuscular Hemoglobin 26.4 pg (26-34); Mean Corpuscular Volume 82.7 fl (80-100); Mean Platelet Volume 10.2 fl (7.4-10.4); Monocytes Absolute Auto 0.7 K/mm3 (0.1-0.6); Monocytes Percent Auto 14.3 % (2.6-8.5); Neutrophils Absolute Auto 2.7 K/mm3 (1.3-6.7); Neutrophils Percent Auto 57.8 % (45.5-73.1); Platelet Count Result 276 k/mm3 (150-375); Red Blood Count 3.75 M/mm3 (4.2-5.4); Red Cell Distribution Width 14.6 % (11.5-14.5); White Blood Count 4.6 K/mm3 (4.5-10.0)
[2020-03-27 05:04] LABS: Blood Urea Nitrogen 36 mg/dL (7-17); Calcium 9.5 mg/dL (8.4-10.2); Carbon Dioxide 26 mmol/L (22-30); Chloride 103 mmol/L (98-107); Estimated CRCL calculation 30 ml/min; Estimated Glomerular Filt Rate 45; Glucose 136 mg/dL (65-105); Potassium 4.6 mmol/L (3.4-5.0); Sodium 133 mmol/L (137-145)
[2020-03-27] MEDS: hydrALAZINE HCL 50 MG TABLET 100 MG FEED TUBE ×3 (05:56→20:37)
[2020-03-27] MEDS: CLONIDINE HCL 0.2 MG TABLET PO ×3 (05:56→20:34)
[2020-03-27] MEDS: HEPARIN SODIUM 5,000 UNITS/ML VIAL 5000 UNITS SUB-Q ×3 (05:56→20:36)
[2020-03-27 06:00] VITALS: BP 171/64; PULSE 75; RESP 19; TEMP 37.1; O2SAT 95
[2020-03-27 07:00] LABS: Glucose Point of Care 136 (65-105)
[2020-03-27 08:00] VITALS: PULSE 75; RESP 19; O2SAT 95
--- NOTE | 2020-03-27 09:07 | PCOTNOTE ---
Attempted OT treatment, but unable to complete as patient going for a CT scan. Will attempt again later today.
[2020-03-27 09:57] VITALS: PULSE 75
[2020-03-27] MEDS: carvediloL 25 MG TABLET 50 MG FEED TUBE ×2 (09:57→20:35)
[2020-03-27] MEDS: AMLODIPINE BESYLATE 5 MG TABLET 10 MG FEED TUBE (09:57)
[2020-03-27] MEDS: CYCLOBENZAPRINE HCL 5 MG TABLET PO ×2 (09:58→20:35)
[2020-03-27] MEDS: DEXAMETHASONE 2 MG TABLET PO (10:08)
[2020-03-27] MEDS: DEXAMETHASONE 4 MG TABLET 8 MG PO (10:08)
[2020-03-27 11:49] LABS: Glucose Point of Care 119 (65-105)
--- NOTE | 2020-03-27 13:06 | PCSTNOTE ---
Attempted ST treatment, but unable to complete as patient was unable to keep awake to participate. Will attempt again later this afternoon.
--- NOTE | 2020-03-27 13:29 | PCDIET ---
Nutrition Follow-Up Complete: Nutrition Diagnosis: Inadequate oral intake related to decreased appetite/dysphagia as evidenced by intakes 50% on pureed diet with PEG placement. Nutrition Diagnosis: Patient to meet estimated nutritional needs. Goal met. Patient consumed average of 38% of meals since last review on pureed, diabetic diet. Tolerating Jevity 1.2 at 60mL/hr x 12 hours/day with no reported issues. Last recorded weight is 69.1 kg which is increased from last review.. Bowel Motility: +BM today. Labs Reviewed: Glu (136) Meds Noted: Dexamethasone, Senna prn Additional Notes: No documented pressure sores. Recommend continuing current tube feeding. If intakes improve to 50% of meals or more, will likely recommend starting to decrease tube feeding rate. Nutrition Monitoring and Evaluation: Follow up every Thursday/Thursday.
[2020-03-27 14:00] VITALS: BP 146/56; PULSE 54; RESP 18; TEMP 36.6; O2SAT 97
--- NOTE | 2020-03-27 14:39 | WPDNEURORHBP ---
Subjective Date/time seen: 03/27/20 14:39 Interval history: this 69-year-old the a from record movement is here after having had devastating the right hemispheric intracranial bleed which has left her with severe left-sided hemiplegia left-sided neglect and also left-sided visual field defect the patient has been roughly about the same or maybe little had better but no worsening however the concern was she having any bleeding in her brain . 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 and moderate nonspecific cerebral white wound matter disease This is this examiner's opinion did the CT finding are the same however have requested by the attending nurse to send this report to [facility] and hoping to get a response and we can send the actual CT scan pushing through the a daily radiology and they can compare it with their last CT scan the patient remains awake and alert follows commands and is the relatively sleepy periodically denies any headache but does have some neck discomfort which she periodically has had since we had her on over floor next There is no nausea vomiting fever chills sore throat abdominal pain diarrhea Review of Systems Review of Systems: All systems reviewed & are unremarkable except as noted in HPI and below Functional Status Transfers Ability Ability to Transfer In/Out of Chair: Maximum Assistance X 1 Exam Const: General: comfortable and no acute distress HENMT: General nose exam: Normal nares present Mouth: Yes moist mucous membranes Eyes: Other: left-sided neglect and left-sided visual field Neck: Neck: supple and no JVD Resp: Effort & Inspection: normal respiratory effort Auscultation: clear to auscultation bilaterally Cardio: Rate: regular rate Rhythm: regular rhythm GI: GI Palp: Yes Soft to palpation Auscultation: normal bowel sounds Skin: General skin exam: normal color and no rashes or lesions noted Neuro: Other: patient is awake alert follows all commands left-sided neglect and left hemiplegia roughly about the same neck is supple chronic his and Brudzinski signs are negative overall she is stable I do not see any clinical deterioration Extrem: General: normal to inspection Psych: Mental Status: mental status grossly normal Objective Data Vital Signs Vital Signs: Vital Signs - 24 hr 03/26/20 20:51 03/26/20 22:00 03/27/20 06:00 Temperature 37.0 C 37.1 C Pulse Rate 78 65 75 Respiratory Rate 19 19 Blood Pressure 151/58 H 171/64 H Pulse Oximetry 96 95 03/27/20 08:00 03/27/20 09:57 Temperature Pulse Rate 75 75 Respiratory Rate 19 Blood Pressure Pulse Oximetry 95 Intake/Output Intake/Output: Intake & Output 03/24/20 03/25/20 03/26/20 03/27/20 23:59 23:59 23:59 23:59 Intake Total 697 928 0981 1260 Balance 630 449 2529 1260 Meds/Results Medications: Active Medications Generic Name Dose Route Start Last Admin Trade Name Freq PRN Reason Stop Dose Admin Acetaminophen 650 mg 03/19/20 14:42 03/24/20 03:25 Tylenol Elixir FEED TUBE 650 mg Q6H PRN Administration Pain (Scale Score 4-6) Hydrocodone Bitart/Acetaminophen 0.5 tab 03/23/20 11:55 03/27/20 14:00 [place] 5-325 Mg FEED TUBE 0.5 tab Q6H SIXTO Administration Amlodipine Besylate 10 mg 03/20/20 09:00 03/27/20 09:57 Norvasc FEED TUBE 10 mg DAILY SIXTO Administration Carvedilol 50 mg 03/20/20 21:00 03/27/20 09:57 Coreg FEED TUBE 50 mg Q12HR SIXTO Administration Clonidine HCl 0.2 mg 03/23/20 22:00 03/27/20 14:00 Catapres PO 0.2 mg Q8H SIXTO Administration Cyclobenzaprine HCl 5 mg 03/26/20 09:00 03/27/20 09:58 Flexeril PO 5 mg Q12HR SIXTO Administration Dexamethasone 4 mg 03/27/20 18:00 Dexamethasone Po PO Q6HR SIXTO Heparin Sodium (Porcine) 5,000 units
--- NOTE | 2020-03-27 15:29 | PCPTNOTE ---
Addendum entered by Marilu Avendano, PT 04/10/20 11:21: Thu Sanchez PTA completed an inpatient rehab wheelchair evaluation on Maxine [place] on 03/27/2020. The patient is unable to safely and independently ambulate household distances due to their current impairments. Their diagnosis is stroke and their impairments include decreased strength, decreased endurance, decreased range of motion, decreased balance and lower extremity weakness. Maxine's weight bearing status is weight-bearing as tolerated on the bilateral lower legs. The patient demonstrates significant functional mobility limitations that impair their ability to participate in mobility-related activities of daily living (MRADLs), including toileting, feeding, dressing, grooming, and bathing in the customary locations in the home. These limitations cannot be sufficiently resolved by the use of an appropriately fitted cane or walker. It is recommended that the patient utilize a wheelchair for functional mobility within the home in order to facilitate optimal safety, independence and participation in all MRADL's and adequately access their home environment on a regular basis. The patient's home provides adequate access between rooms, maneuvering space, and surfaces to accommodate the recommended wheelchair. The use of a wheelchair for functional mobility is strongly recommended and the patient is receptive to using the wheelchair. The use of this wheelchair will significantly improve the patient's ability to participate in MRADLS and the patient will use it on a regular basis in the home. This will facilitate optimal safety, independence, and participation. The patient has demonstrated sufficient physical and mental capabilities needed to safely propel a manual wheelchair that is provided in the home during a typical day. Recommended Wheelchair Frame: standard Recommended Wheelchair Size: 18x18 Recommended Wheelchair Cushion:standard Wheelchair Leg Recommendations: bilateral swing away leg rests. *The patient has family who is available to provide assist with wheelchair mobility and will be her primary caregivers at home. -A manual fully reclining back option is recommended because the patient is at high risk for development of a pressure ulcer and is unable to perform a functional weight shift. - Elevating legrests are recommended is recommended because the patient's wheelchair is also recommended to have a reclining back. -Anti-tippers are recommended due to patient demonstrating increased risk for falls. They would benefit from anti-tippers with added safety and stabilization. - A LEFT arm trough is recommended because the patient has hemiplegia. - Adjustable arm height is recommended because the patient requires an arm height that is different than that which is available using non-adjustable arms. The patient spends at least 2 hours per day in the wheelchair. Thu Sanchez PTA 03/27/2020 Evaluating Therapist Date I agree with and certify that the above recommendation is medically necessary. Referring Physician Date I agree with and certify that the above recommendation is medically necessary. Referring Physician Date Original Note: Thu Sanchez PTA completed an inpatient rehab wheelchair evaluation on Maxine [place] on 03/27/2020. The patient is unable to safely and independently ambulate household distances due to their current impairments. Their diagnosis is stroke and their impairments include decreased st
[2020-03-27 17:04] LABS: Glucose Point of Care 155 (65-105)
[2020-03-27] MEDS: DEXAMETHASONE 4 MG TABLET PO ×2 (17:47→23:37)
[2020-03-27 20:35] VITALS: PULSE 60
[2020-03-27 21:13] LABS: Glucose Point of Care 193 (65-105)
[2020-03-27 22:00] VITALS: BP 153/66; PULSE 60; RESP 18; TEMP 36.4; O2SAT 98
[2020-03-28] MEDS: hydrALAZINE HCL 25 MG TABLET 100 MG FEED TUBE (05:45)
[2020-03-28] MEDS: CLONIDINE HCL 0.2 MG TABLET PO ×3 (05:46→21:20)
[2020-03-28] MEDS: DEXAMETHASONE 4 MG TABLET PO ×4 (05:46→23:38)
[2020-03-28] MEDS: HEPARIN SODIUM 5,000 UNITS/ML VIAL 5000 UNITS SUB-Q ×3 (05:47→21:21)
[2020-03-28 06:00] VITALS: BP 153/58; PULSE 62; RESP 18; TEMP 36.7; O2SAT 99
[2020-03-28 06:52] LABS: Glucose Point of Care 169 (65-105)
[2020-03-28 09:44] VITALS: PULSE 62
[2020-03-28] MEDS: carvediloL 25 MG TABLET 50 MG FEED TUBE ×2 (09:44→21:21)
[2020-03-28] MEDS: AMLODIPINE BESYLATE 5 MG TABLET 10 MG FEED TUBE (09:44)
[2020-03-28] MEDS: CYCLOBENZAPRINE HCL 5 MG TABLET PO ×2 (09:47→21:20)
--- NOTE | 2020-03-28 11:57 | PCPTNOTE ---
Per physician request, PT ordered small soft cervical collar for patient to wear throughout the day in order to facilitate optimal head/neck posture and positioning. Marilu Avendano, PT, DPT
[2020-03-28 12:28] LABS: Glucose Point of Care 155 (65-105)
--- NOTE | 2020-03-28 12:55 | WPDNEURORHBP ---
Subjective Date/time seen: 03/28/20 12:55 Interval history: this 69-year-old Afro-[place]ian woman is here after having had significant right hemispheric bleed which has left her with the left-sided hemiplegia left-sided neglect left-sided visual field defect I had started her on Decadron yesterday and she definitely is more alert feeling better she is able to eat fairly well with the knee dysphagia dysphonia or dysarthria her speech is more fluent and she is not as sleepy we have not heard from [facility] yet after leaving a message in the Neurology/ Psychiatry Department we will try again today in fact the attending nurse will be able to be touch or leave a message with the neurologist who had treated her at [facility]. Patient's overall picture seems to be improving I do not see regression for sure in any way at this point Review of Systems Review of Systems: All systems reviewed & are unremarkable except as noted in HPI and below Functional Status Transfers Ability Ability to Transfer In/Out of Chair: Maximum Assistance X 1 Exam Const: General: comfortable and no acute distress HENMT: General nose exam: Normal nares present Mouth: Yes moist mucous membranes Eyes: General: appearance normal, both eyes and all related structures Other: left-sided neglect and left-sided visual field defect Neck: Neck: supple and no JVD Resp: Effort & Inspection: normal respiratory effort Auscultation: clear to auscultation bilaterally Cardio: Rate: regular rate Rhythm: regular rhythm GI: GI Palp: Yes Soft to palpation Auscultation: normal bowel sounds Skin: General skin exam: normal color and no rashes or lesions noted Neuro: Other: patient is awake alert with fluent speech without any aphasia or dysarthria left hemiplegia and the left-sided neglect and left-sided visual field defect roughly remains the same but overall picture is of improvement from the previous several days as for as the sleepiness tiredness and neck pain is concerned Extrem: General: normal to inspection Psych: Mental Status: mental status grossly normal Objective Data Vital Signs Vital Signs: Vital Signs - 24 hr 03/27/20 14:00 03/27/20 20:35 03/27/20 22:00 Temperature 36.6 C 36.4 C L Pulse Rate 54 L 60 60 Respiratory Rate 18 18 Blood Pressure 146/56 H 153/66 H Pulse Oximetry 97 98 03/28/20 06:00 03/28/20 09:44 Temperature 36.7 C Pulse Rate 62 62 Respiratory Rate 18 Blood Pressure 153/58 H Pulse Oximetry 99 Intake/Output Intake/Output: Intake & Output 03/25/20 03/26/20 03/27/20 03/28/20 23:59 23:59 23:59 23:59 Intake Total 405 1430 1380 1190 Balance 405 1430 1380 1190 Meds/Results Medications: Active Medications Generic Name Dose Route Start Last Admin Trade Name Freq PRN Reason Stop Dose Admin Acetaminophen 650 mg 03/19/20 14:42 03/24/20 03:25 Tylenol Elixir FEED TUBE 650 mg Q6H PRN Administration Pain (Scale Score 4-6) Hydrocodone Bitart/Acetaminophen 0.5 tab 03/23/20 11:55 03/28/20 05:50 [place] 5-325 Mg FEED TUBE 0.5 tab Q6H SIXTO Administration Amlodipine Besylate 10 mg 03/20/20 09:00 03/28/20 09:44 Norvasc FEED TUBE 10 mg DAILY ISXTO Administration Carvedilol 50 mg 03/20/20 21:00 03/28/20 09:44 Coreg FEED TUBE 50 mg Q12HR SIXTO Administration Clonidine HCl 0.2 mg 03/23/20 22:00 03/28/20 05:46 Catapres PO 0.2 mg Q8H SIXTO Administration Cyclobenzaprine HCl 5 mg 03/26/20 09:00 03/28/20 09:47 Flexeril PO 5 mg Q12HR SIXTO Administration Dexamethasone 4 mg 03/27/20 18:00 03/28/20 05:46 Dexamethasone Po PO 4 mg Q6HR SIXTO Administration Heparin Sodium (Porcine) 5,000 units 03/19/20 14:00 03/28/20 05:47 Heparin Sodium SUB-Q 5,000 units Q8H SIXTO Administration Hydralazine HCl 100 mg 03/28/20 14:00 Apresoline Tablet FEED TUBE Q8H SIXTO Senna 8.6 mg 03/19/20 14:42 Senokot Tablet FEED
[2020-03-28 14:00] VITALS: BP 179/56; PULSE 72; RESP 16; TEMP 36.4; O2SAT 95
[2020-03-28] MEDS: hydrALAZINE HCL 50 MG TABLET 100 MG FEED TUBE ×2 (14:57→21:20)
[2020-03-28 18:18] LABS: Glucose Point of Care 155 (65-105)
[2020-03-28 20:51] LABS: Glucose Point of Care 161 (65-105)
[2020-03-28] MEDS: PANTOPRAZOLE 40 MG TABLET PO (21:21)
[2020-03-28 21:32] VITALS: BP 137/56; PULSE 56; RESP 20; TEMP 36.4; O2SAT 97
[2020-03-29] MEDS: hydrALAZINE HCL 50 MG TABLET 100 MG FEED TUBE ×3 (05:38→20:54)
[2020-03-29] MEDS: DEXAMETHASONE 4 MG TABLET PO ×3 (05:38→18:30)
[2020-03-29] MEDS: CLONIDINE HCL 0.2 MG TABLET PO ×3 (05:38→20:53)
[2020-03-29] MEDS: HEPARIN SODIUM 5,000 UNITS/ML VIAL 5000 UNITS SUB-Q ×3 (05:38→20:53)
[2020-03-29 06:00] VITALS: BP 132/47; PULSE 60; RESP 16; TEMP 36.8; O2SAT 96
[2020-03-29 06:56] LABS: Glucose Point of Care 166 (65-105)
[2020-03-29 08:48] VITALS: PULSE 60
[2020-03-29] MEDS: AMLODIPINE BESYLATE 5 MG TABLET 10 MG FEED TUBE (08:48)
[2020-03-29] MEDS: carvediloL 25 MG TABLET 50 MG FEED TUBE ×2 (08:48→20:52)
[2020-03-29] MEDS: CYCLOBENZAPRINE HCL 5 MG TABLET PO ×2 (08:54→20:53)
[2020-03-29] MEDS: PANTOPRAZOLE 40 MG TABLET PO ×2 (08:54→20:53)
--- NOTE | 2020-03-29 11:33 | PC.NURSE ---
Was able to reach neurologist, Dr. Johansen's office and fax number as follows [phone]/telephone [phone]. Faxed over CT from 03/27/20 and also had radiology transmit as well.
--- NOTE | 2020-03-29 11:42 | WPDNEURORHBP ---
Subjective Date/time seen: 03/29/20 11:42 Interval history: this 69-year-old Afro-Tristanian woman is here after having had a right hemispheric intracranial hemorrhage which has left her with the left-sided hemiplegia left-sided visual field defect and also left-sided neglect the neglect and visual field defect is relatively stable or even getting better however the hemiplegia has little improvement but on the other hand she is more alert not as sleepy and is able to engage in the therapy and I am planning to start her on E stimulation we have left a message 3rd time today 3 days in a row to the Neurology Department/ neurologist at [facility] however nobody has responded to us our request what least we can fax the CT head report and once we find out will be able to send the actual CT scan via tele radiology Review of Systems Review of Systems: All systems reviewed & are unremarkable except as noted in HPI and below Functional Status Transfers Ability Ability to Transfer In/Out of Chair: Maximum Assistance X 1 Exam Const: General: comfortable and no acute distress HENMT: General nose exam: Normal nares present Mouth: Yes moist mucous membranes Eyes: General: appearance normal, both eyes and all related structures Neck: Neck: supple and no JVD Resp: Effort & Inspection: normal respiratory effort Auscultation: clear to auscultation bilaterally Cardio: Rate: regular rate Rhythm: regular rhythm GI: GI Palp: Yes Soft to palpation Auscultation: normal bowel sounds Skin: General skin exam: normal color and no rashes or lesions noted Neuro: Other: patient is awake and alert will oriented in time place and person there is a little improvement in the left lower extremity however the left arm remains flaccid the left-sided neglect is little bit better the visual field defect is stable and the patient is getting used to it the speech pathologist tell me that she definitely she is better and following commands and following instructions much better than the previous several days Extrem: General: normal to inspection Psych: Other: left-sided neglect left-sided visual field defect but remains alert and oriented Objective Data Vital Signs Vital Signs: Vital Signs - 24 hr 03/28/20 14:00 03/28/20 21:32 03/29/20 06:00 Temperature 36.4 C 36.4 C 36.8 C Pulse Rate 72 56 L 60 Respiratory Rate 16 20 16 Blood Pressure 179/56 H 137/56 L 132/47 L Pulse Oximetry 95 97 96 04/30/20 08:48 Temperature Pulse Rate 60 Respiratory Rate Blood Pressure Pulse Oximetry Intake/Output Intake/Output: Intake & Output 03/26/20 03/27/20 03/28/20 03/29/20 23:59 23:59 23:59 23:59 Intake Total 1430 1380 1290 1320 Balance 1430 1380 1290 1320 Meds/Results Medications: Active Medications Generic Name Dose Route Start Last Admin Trade Name Freq PRN Reason Stop Dose Admin Acetaminophen 650 mg 03/19/20 14:42 03/24/20 03:25 Tylenol Elixir FEED TUBE 650 mg Q6H PRN Administration Pain (Scale Score 4-6) Hydrocodone Bitart/Acetaminophen 0.5 tab 03/23/20 11:55 03/29/20 05:39 [place] 5-325 Mg FEED TUBE 0.5 tab Q6H SIXTO Administration Amlodipine Besylate 10 mg 03/20/20 09:00 03/29/20 08:48 Norvasc FEED TUBE 10 mg DAILY SIXTO Administration Carvedilol 50 mg 03/20/20 21:00 03/29/20 08:48 Coreg FEED TUBE 50 mg Q12HR SIXTO Administration Clonidine HCl 0.2 mg 03/23/20 22:00 03/29/20 05:38 Catapres PO 0.2 mg Q8H SIXTO Administration Cyclobenzaprine HCl 5 mg 03/26/20 09:00 03/29/20 08:54 Flexeril PO 5 mg Q12HR SIXTO Administration Dexamethasone 4 mg 03/27/20 18:00 03/29/20 05:38 Dexamethasone Po PO 4 mg Q6HR SIXTO Administration Heparin Sodium (Porcine) 5,000 units 03/19/20 14:00 03/29/20 05:38 Heparin Sodium SUB-Q 5,000 units Q8H SIXTO Administration Hydralazine HCl 100 mg 03/28/20 14:00 03/29/20 05:38 Apresoline Tablet FEED TUBE 10
[2020-03-29 12:04] LABS: Glucose Point of Care 122 (65-105)
[2020-03-29 14:00] VITALS: BP 104/47; PULSE 62; RESP 18; TEMP 36.3; O2SAT 97
[2020-03-29 17:08] LABS: Glucose Point of Care 120 (65-105)
[2020-03-29 20:52] VITALS: PULSE 74
[2020-03-29 21:20] VITALS: BP 144/57; PULSE 95; RESP 16; TEMP 37; O2SAT 95
[2020-03-29 22:04] LABS: Glucose Point of Care 195 (65-105)
[2020-03-30] MEDS: DEXAMETHASONE 4 MG TABLET PO ×4 (00:12→18:05)
[2020-03-30] MEDS: HEPARIN SODIUM 5,000 UNITS/ML VIAL 5000 UNITS SUB-Q ×3 (05:45→21:04)
[2020-03-30] MEDS: CLONIDINE HCL 0.2 MG TABLET PO ×3 (05:46→21:04)
[2020-03-30] MEDS: hydrALAZINE HCL 50 MG TABLET 100 MG FEED TUBE ×3 (05:46→21:04)
[2020-03-30 06:00] VITALS: BP 131/53; PULSE 96; RESP 16; TEMP 37.1; O2SAT 100
[2020-03-30 06:44] LABS: Glucose Point of Care 185 (65-105)
[2020-03-30 09:11] VITALS: PULSE 96
[2020-03-30] MEDS: carvediloL 25 MG TABLET 50 MG FEED TUBE ×2 (09:11→21:04)
[2020-03-30] MEDS: AMLODIPINE BESYLATE 5 MG TABLET 10 MG FEED TUBE (09:11)
[2020-03-30] MEDS: CYCLOBENZAPRINE HCL 5 MG TABLET PO ×2 (09:13→21:06)
[2020-03-30] MEDS: PANTOPRAZOLE 40 MG TABLET PO ×2 (09:13→21:04)
--- NOTE | 2020-03-30 11:46 | PCDIET ---
Nutrition Follow-Up Complete: Nutrition Diagnosis: Inadequate oral intake related to decreased appetite/dysphagia as evidenced by intakes 50% on pureed diet with PEG placement. Nutrition Goal: Patient to meet estimated nutritional needs. Goal met. Intakes fluctuate, but overall average since 03/28/20 has been 55% of recorded meals on diabetic, pureed diet. Patient also receiving Jevity 1.2 at 60mL/hr x 12 hours overnight with 100mL water flush every 6 hours. Recommend continuing present tube feeding due to varying intakes; however, if average remains 50% or above at next review, will likely recommend tapering of tube feeding. Last recorded weight is 71 kg which is increased. Bowel Motility: +Large BM on 03/29/20. Labs Reviewed: Glu (185) Meds Noted: Dexamethasone, Protonix Additional Notes: No documented pressure sores. Will continue to monitor with same goal. Nutrition Monitoring and Evaluation: Follow up every Thursday/Thursday.
[2020-03-30 12:11] LABS: Glucose Point of Care 136 (65-105)
[2020-03-30 14:00] VITALS: BP 127/58; PULSE 60; RESP 16; TEMP 36.8; O2SAT 96
--- NOTE | 2020-03-30 14:38 | WPDNEURORHBP ---
Subjective Date/time seen: 03/30/20 14:38 Interval history: this 69-year-old Afro-[place]ian woman is here of from suffering from significant right hemispheric intracranial hemorrhage which had affected her left side to almost hemiplegia and left-sided neglect and left-sided visual field defect she continues to have some neck discomfort which is relatively better with the use of the soft cervical collar however no headache nausea vomiting chest pain shortness of breath overall she is much more alert and much more responsive not as sleepy Review of Systems Review of Systems: All systems reviewed & are unremarkable except as noted in HPI and below Functional Status Transfers Ability Ability to Transfer In/Out of Chair: Maximum Assistance X 1 Exam Const: General: comfortable and no acute distress HENMT: General nose exam: Normal nares present Mouth: Yes moist mucous membranes Eyes: General: appearance normal, both eyes and all related structures Neck: Neck: supple and no JVD Resp: Effort & Inspection: normal respiratory effort Auscultation: clear to auscultation bilaterally Cardio: Rate: regular rate Rhythm: regular rhythm GI: GI Palp: Yes Soft to palpation Auscultation: normal bowel sounds Skin: General skin exam: normal color and no rashes or lesions noted Neuro: Other: patient is speech and language functions are normal she is awake and alert follows all commands was able to feed herself this morning left-sided neglect is getting better visual field defect remains stable and little improvement in the left hem Extrem: General: normal to inspection Psych: Mental Status: mental status grossly normal Objective Data Vital Signs Vital Signs: Vital Signs - 24 hr 03/29/20 20:52 03/29/20 21:20 03/30/20 06:00 Temperature 37.0 C 37.1 C Pulse Rate 74 95 96 Respiratory Rate 16 16 Blood Pressure 144/57 H 131/53 L Pulse Oximetry 95 100 03/30/20 09:11 Temperature Pulse Rate 96 Respiratory Rate Blood Pressure Pulse Oximetry Intake/Output Intake/Output: Intake & Output 03/27/20 03/28/20 03/29/20 03/30/20 23:59 23:59 23:59 23:59 Intake Total 1380 1290 1920 120 Balance 1380 1290 1920 120 Meds/Results Medications: Active Medications Generic Name Dose Route Start Last Admin Trade Name Freq PRN Reason Stop Dose Admin Acetaminophen 650 mg 03/19/20 14:42 03/24/20 03:25 Tylenol Elixir FEED TUBE 650 mg Q6H PRN Administration Pain (Scale Score 4-6) Hydrocodone Bitart/Acetaminophen 0.5 tab 03/30/20 06:00 03/30/20 12:40 [place] 5-325 Mg FEED TUBE 0.5 tab Q6HR SIXTO Administration Amlodipine Besylate 10 mg 03/20/20 09:00 03/30/20 09:11 Norvasc FEED TUBE 10 mg DAILY SIXTO Administration Carvedilol 50 mg 03/20/20 21:00 03/30/20 09:11 Coreg FEED TUBE 50 mg Q12HR SIXTO Administration Clonidine HCl 0.2 mg 03/23/20 22:00 03/30/20 05:46 Catapres PO 0.2 mg Q8H SIXTO Administration Cyclobenzaprine HCl 5 mg 03/26/20 09:00 03/30/20 09:13 Flexeril PO 5 mg Q12HR SIXTO Administration Dexamethasone 4 mg 03/27/20 18:00 03/30/20 12:41 Dexamethasone Po PO 4 mg Q6HR SIXTO Administration Heparin Sodium (Porcine) 5,000 units 03/19/20 14:00 03/30/20 05:45 Heparin Sodium SUB-Q 5,000 units Q8H SIXTO Administration Hydralazine HCl 100 mg 03/28/20 14:00 03/30/20 05:46 Apresoline Tablet FEED TUBE 100 mg Q8H SIXTO Administration Pantoprazole Sodium 40 mg 03/28/20 21:00 03/30/20 09:13 Protonix PO 40 mg Q12HR SIXTO Administration Senna 8.6 mg 03/19/20 14:42 Senokot Tablet FEED TUBE DAILY PRN Constipation Sodium Chloride 2 spray 03/19/20 14:42 [place] Nasal [place] NASAL Q2H PRN Nasal Congestion Radiology Results: ITS Impressions Abdomen X-Ray 03/19/20 16:41 IMPRESSION: 1. PEG tube projecting over the stomach. Head CT 03/27/20 09:38 IMPRESSION: 1. Acute intraparenchymal
[2020-03-30 17:15] LABS: Glucose Point of Care 142 (65-105)
[2020-03-30 21:19] VITALS: BP 152/69; PULSE 84; RESP 20; TEMP 37; O2SAT 98
[2020-03-30 22:06] LABS: Glucose Point of Care 156 (65-105)
[2020-03-31] MEDS: DEXAMETHASONE 4 MG TABLET PO ×4 (01:23→18:22)
[2020-03-31] MEDS: HEPARIN SODIUM 5,000 UNITS/ML VIAL 5000 UNITS SUB-Q ×3 (05:43→21:54)
[2020-03-31] MEDS: CLONIDINE HCL 0.2 MG TABLET PO ×3 (05:44→21:54)
[2020-03-31] MEDS: hydrALAZINE HCL 50 MG TABLET 100 MG FEED TUBE ×3 (05:44→21:54)
[2020-03-31 06:00] VITALS: BP 133/52; PULSE 63; RESP 20; TEMP 37.1; O2SAT 95
[2020-03-31 07:03] LABS: Glucose Point of Care 164 (65-105)
[2020-03-31 09:51] VITALS: PULSE 63
[2020-03-31] MEDS: carvediloL 25 MG TABLET 50 MG FEED TUBE ×2 (09:51→20:35)
[2020-03-31] MEDS: AMLODIPINE BESYLATE 5 MG TABLET 10 MG FEED TUBE (09:51)
[2020-03-31] MEDS: PANTOPRAZOLE 40 MG TABLET PO ×2 (09:52→20:35)
[2020-03-31] MEDS: CYCLOBENZAPRINE HCL 5 MG TABLET PO ×2 (09:54→20:35)
[2020-03-31 12:18] LABS: Glucose Point of Care 146 (65-105)
[2020-03-31 14:00] VITALS: BP 160/54; PULSE 66; RESP 18; TEMP 37.1; O2SAT 95
[2020-03-31 17:28] LABS: Glucose Point of Care 147 (65-105)
[2020-03-31 20:35] VITALS: PULSE 86
[2020-03-31 22:00] VITALS: BP 142/45; PULSE 68; RESP 18; TEMP 37.7; O2SAT 95
[2020-03-31 22:41] LABS: Glucose Point of Care 184 (65-105)
[2020-04-01] MEDS: DEXAMETHASONE 4 MG TABLET PO ×4 (00:02→18:17)
[2020-04-01] MEDS: hydrALAZINE HCL 50 MG TABLET 100 MG FEED TUBE ×3 (05:24→22:03)
[2020-04-01] MEDS: HEPARIN SODIUM 5,000 UNITS/ML VIAL 5000 UNITS SUB-Q ×3 (05:24→22:04)
[2020-04-01] MEDS: CLONIDINE HCL 0.2 MG TABLET PO ×3 (05:24→22:03)
[2020-04-01 06:00] VITALS: BP 155/65; PULSE 64; RESP 18; TEMP 36.7; O2SAT 94
[2020-04-01 07:10] LABS: Glucose Point of Care 110 (65-105)
[2020-04-01] MEDS: AMLODIPINE BESYLATE 5 MG TABLET 10 MG FEED TUBE (09:32)
[2020-04-01 09:33] VITALS: PULSE 72
[2020-04-01] MEDS: carvediloL 25 MG TABLET 50 MG FEED TUBE ×2 (09:33→22:01)
[2020-04-01] MEDS: PANTOPRAZOLE 40 MG TABLET PO ×2 (09:33→22:02)
[2020-04-01] MEDS: CYCLOBENZAPRINE HCL 5 MG TABLET PO ×2 (10:00→22:02)
[2020-04-01 12:15] LABS: Glucose Point of Care 163 (65-105)
[2020-04-01 14:00] VITALS: BP 121/57; PULSE 62; RESP 18; TEMP 36.6; O2SAT 97
[2020-04-01 17:37] LABS: Glucose Point of Care 173 (65-105)
--- NOTE | 2020-04-01 17:46 | WPDNEURORHBP ---
Subjective Date/time seen: 04/01/20 17:46 Interval history: this 69-year-old Afro-[place]onian woman is here because of intracranial hemorrhage of the right cerebral hemisphere with left-sided hemiplegia left-sided neural neglect and left-sided visual field defect she is eating much better and the we have been holding her feeding through the tube os since last night she ate today denies any headache nausea vomiting chest pain shortness of breath fever chills or sore throat Review of Systems Review of Systems: All systems reviewed & are unremarkable except as noted in HPI and below Functional Status Transfers Ability Ability to Transfer In/Out of Chair: Maximum Assistance X 1 Exam Const: General: comfortable and no acute distress HENMT: General nose exam: Normal nares present Mouth: Yes moist mucous membranes Eyes: General: appearance normal, both eyes and all related structures Neck: Neck: supple and no JVD Resp: Effort & Inspection: normal respiratory effort Auscultation: clear to auscultation bilaterally Cardio: Rate: regular rate Rhythm: regular rhythm GI: GI Palp: Yes Soft to palpation Auscultation: normal bowel sounds Skin: General skin exam: normal color and no rashes or lesions noted Neuro: Other: patient is awake alert will oriented in time place and person much more alert following commands left-sided hemiplegia roughly about the same with little improvement neglect is less however visual field defect is stable Extrem: General: normal to inspection Psych: Mental Status: mental status grossly normal Objective Data Vital Signs Vital Signs: Vital Signs - 24 hr 03/31/20 20:35 03/31/20 22:00 04/01/20 06:00 Temperature 37.7 C H 36.7 C Pulse Rate 86 68 64 Respiratory Rate 18 18 Blood Pressure 142/45 H 155/65 H Pulse Oximetry 95 94 04/01/20 09:33 04/01/20 14:00 Temperature 36.6 C Pulse Rate 72 62 Respiratory Rate 18 Blood Pressure 121/57 L Pulse Oximetry 97 Intake/Output Intake/Output: Intake & Output 03/29/20 03/30/20 03/31/20 04/01/20 23:59 23:59 23:59 23:59 Intake Total 1920 480 720 720 Output Total 0 Balance 1920 480 720 720 Meds/Results Medications: Active Medications Generic Name Dose Route Start Last Admin Trade Name Freq PRN Reason Stop Dose Admin Acetaminophen 650 mg 03/19/20 14:42 03/24/20 03:25 Tylenol Elixir FEED TUBE 650 mg Q6H PRN Administration Pain (Scale Score 4-6) Hydrocodone Bitart/Acetaminophen 0.5 tab 03/30/20 06:00 04/01/20 13:10 [place] 5-325 Mg FEED TUBE 0.5 tab Q6HR SIXTO Administration Amlodipine Besylate 10 mg 03/20/20 09:00 04/01/20 09:32 Norvasc FEED TUBE 10 mg DAILY SIXTO Administration Carvedilol 50 mg 03/20/20 21:00 04/01/20 09:33 Coreg FEED TUBE 50 mg Q12HR SIXTO Administration Clonidine HCl 0.2 mg 03/23/20 22:00 04/01/20 15:27 Catapres PO 0.2 mg Q8H SIXTO Administration Cyclobenzaprine HCl 5 mg 03/26/20 09:00 04/01/20 10:00 Flexeril PO 5 mg Q12HR SIXTO Administration Dexamethasone 4 mg 03/27/20 18:00 04/01/20 13:07 Dexamethasone Po PO 4 mg Q6HR SIXTO Administration Heparin Sodium (Porcine) 5,000 units 03/19/20 14:00 04/01/20 15:27 Heparin Sodium SUB-Q 5,000 units Q8H SIXTO Administration Hydralazine HCl 100 mg 03/28/20 14:00 04/01/20 15:27 Apresoline Tablet FEED TUBE 100 mg Q8H SIXTO Administration Pantoprazole Sodium 40 mg 03/28/20 21:00 04/01/20 09:33 Protonix PO 40 mg Q12HR SIXTO Administration Senna 8.6 mg 03/19/20 14:42 Senokot Tablet FEED TUBE DAILY PRN Constipation Sodium Chloride 2 spray 03/19/20 14:42 [place] Nasal [place] NASAL Q2H PRN Nasal Congestion Radiology Results: ITS Impressions Abdomen X-Ray 03/19/20 16:41 IMPRESSION: 1. PEG tube projecting over the stomach. Head CT 03/27/20 09:38 IMPRESSION: 1. Acute intraparenchymal hematoma involving the right basal gangl
[2020-04-01 21:53] VITALS: BP 135/51; PULSE 66; RESP 18; TEMP 36.9; O2SAT 96
[2020-04-01 22:01] VITALS: PULSE 66
[2020-04-01 23:14] LABS: Glucose Point of Care 175 (65-105)
[2020-04-02] MEDS: DEXAMETHASONE 4 MG TABLET PO ×4 (00:10→17:56)
[2020-04-02 06:00] VITALS: BP 146/59; PULSE 64; RESP 18; TEMP 36.8; O2SAT 97
[2020-04-02] MEDS: HEPARIN SODIUM 5,000 UNITS/ML VIAL 5000 UNITS SUB-Q ×3 (06:00→21:11)
[2020-04-02] MEDS: CLONIDINE HCL 0.2 MG TABLET PO ×3 (06:00→21:10)
[2020-04-02] MEDS: hydrALAZINE HCL 50 MG TABLET 100 MG FEED TUBE ×3 (06:03→21:11)
[2020-04-02 07:08] LABS: Glucose Point of Care 161 (65-105)
[2020-04-02 08:59] VITALS: PULSE 64
[2020-04-02] MEDS: carvediloL 25 MG TABLET 50 MG FEED TUBE ×2 (08:59→21:12)
[2020-04-02] MEDS: CYCLOBENZAPRINE HCL 5 MG TABLET PO ×2 (08:59→21:10)
[2020-04-02] MEDS: AMLODIPINE BESYLATE 5 MG TABLET 10 MG FEED TUBE (09:00)
[2020-04-02] MEDS: PANTOPRAZOLE 40 MG TABLET PO ×2 (09:00→21:10)
--- NOTE | 2020-04-02 11:43 | PCPTNOTE ---
Maxine Fountain was evaluated for a hospital bed on 04/02/2020 by this physical therapist. The patient will require a semi-electric hospital bed with elevation/lowering functions for the head of bed and the ability to raise/lower the entire bed due to the patient having aspiration precautions, currently completes tube feeding, and requires bed adjustments to facilitate optimal patient care for patient positioning in bed, and ADL's/IADL's. Ms. Fountain is currently requiring Max assist of 1-2 for bed mobility, Max A x 1 for sitting edge of bed demonstrating reduced head/neck and trunk control, and requires a марина lift to complete bed to wc/wc to bed transfers given the severity of her deficits. She would highly benefit from an alternating pressure relief mattress due to the patient's reduced independence to complete pressure relief while in the bed and due to the patient demonstrating increased risk for skin breakdown secondary to the severity of her deficits. The patient's family are able to accommodate a hospital bed within their home. The patient completes dependent bed baths and dressing while in bed due to the severity of her deficits. Marilu Avendano, PT, DPT
--- NOTE | 2020-04-02 12:14 | PCPTNOTE ---
Addendum entered by Marilu Avendano PT 04/10/20 11:15: Maxine Fountain was evaluated for a manual марина lift on 04/02/2020 by this physical therapist. The manual марина lift is necessary due to the patient currently demonstrating continued generalized weakness, hemiparesis, reduced head/neck and trunk control. The patient currently uses a марина lift transfer for bed to wc/wc to bed transfers. The patient is bed confined due to the severity of her deficits. The patient has initiated 2 person squat pivot transfers from bed to wc/wc to bed, however it is recommended that family complete dependent manual марина lift transfers for optimal safety of the patient and family. It is recommended that the patient receive a MEDIUM sized sling. Marilu Avendano PT, DPT Original Note: Maxine Fountain was evaluated for a manual марина lift on 04/02/2020 by this physical therapist. The manual марина lift is necessary due to the patient currently demonstrating continued generalized weakness, hemiparesis, reduced head/neck and trunk control. The patient currently uses a марина lift transfer for bed to wc/wc to bed transfers. The patient has initiated 2 person squat pivot transfers from bed to wc/wc to bed, however it is recommended that family complete dependent manual марина lift transfers for optimal safety of the patient and family. It is recommended that the patient receive a MEDIUM sized sling. Marilu Avendano, PT, DPT
[2020-04-02 12:46] LABS: Glucose Point of Care 217 (65-105)
[2020-04-02 14:00] VITALS: BP 146/54; PULSE 60; RESP 16; TEMP 36.6; O2SAT 97
[2020-04-02 17:29] LABS: Glucose Point of Care 203 (65-105)
[2020-04-02 21:12] VITALS: PULSE 74
[2020-04-02 21:20] VITALS: BP 134/48; PULSE 66; RESP 16; TEMP 36.9; O2SAT 96
[2020-04-03] MEDS: DEXAMETHASONE 4 MG TABLET PO ×4 (00:08→18:44)
[2020-04-03 04:41] LABS: Hematocrit 33.8 % (37.0-47.0); Hemoglobin 11.2 g/dL (12.0-15.0); Immature Granulocyte Absolute 0.07 K/mm3 (0.00-0.031); Immature Granulocyte Percent A 1.6 % (0-0.5); Lymphocytes Percent Auto 4.4 % (18.3-44.2); Mean Corpuscular HGB Conc 33.1 g/dl (32-36); Mean Corpuscular Hemoglobin 26.5 pg (26-34); Mean Corpuscular Volume 80.1 fl (80-100); Mean Platelet Volume 9.8 fl (7.4-10.4); Monocytes Absolute Auto 0.1 K/mm3 (0.1-0.6); Monocytes Percent Auto 2.9 % (2.6-8.5); Neutrophils Absolute Auto 4.1 K/mm3 (1.3-6.7); Neutrophils Percent Auto 91.1 % (45.5-73.1); Platelet Count Result 305 k/mm3 (150-375); Red Blood Count 4.22 M/mm3 (4.2-5.4); Red Cell Distribution Width 14.5 % (11.5-14.5); White Blood Count 4.5 K/mm3 (4.5-10.0)
[2020-04-03 05:02] LABS: Blood Urea Nitrogen 75 mg/dL (7-17); Calcium 9.2 mg/dL (8.4-10.2); Carbon Dioxide 24 mmol/L (22-30); Chloride 105 mmol/L (98-107); Estimated CRCL calculation 25 ml/min; Estimated Glomerular Filt Rate 36; Glucose 151 mg/dL (65-105); Sodium 133 mmol/L (137-145)
[2020-04-03 06:00] VITALS: BP 137/56; PULSE 59; RESP 20; TEMP 36.6; O2SAT 100
[2020-04-03] MEDS: HEPARIN SODIUM 5,000 UNITS/ML VIAL 5000 UNITS SUB-Q ×3 (06:36→22:02)
[2020-04-03] MEDS: hydrALAZINE HCL 50 MG TABLET 100 MG FEED TUBE ×3 (06:37→22:01)
[2020-04-03] MEDS: CLONIDINE HCL 0.2 MG TABLET PO ×3 (06:38→22:01)
[2020-04-03 07:07] LABS: Glucose Point of Care 146 (65-105)
[2020-04-03 08:47] VITALS: BP 136/53; PULSE 61; RESP 18; O2SAT 96
[2020-04-03 08:50] VITALS: PULSE 61
[2020-04-03] MEDS: AMLODIPINE BESYLATE 5 MG TABLET 10 MG FEED TUBE (08:50)
[2020-04-03] MEDS: carvediloL 25 MG TABLET 50 MG FEED TUBE ×2 (08:50→21:58)
[2020-04-03] MEDS: CYCLOBENZAPRINE HCL 5 MG TABLET PO ×2 (08:51→22:00)
[2020-04-03] MEDS: PANTOPRAZOLE 40 MG TABLET PO ×2 (08:51→21:59)
--- NOTE | 2020-04-03 11:21 | PCDIET ---
Nutrition Follow-Up Complete: Nutrition Diagnosis: Inadequate oral intake related to decreased appetite/dysphagia as evidenced by intakes 50% on pureed diet with PEG placement. Nutrition Goal: Patient to meet estimated nutritional needs. Goal met. Tube feedings held over the weekend since patient was eating well. Average intake since 03/30/20 has been 79% of meals + Ensure Compact TID. Agree to discontinue nocturnal tube feedings at this time. Last recorded weight is 70 kg which is down slightly from last review, but up overall from admission. Bowel Motility: Last documented bowel movement on 03/30/20. Labs Reviewed: Glu (151), BUN (75), Cr (1.7), Na (133) Meds Noted: Dexamethasone, Protonix, Senna prn Additional Notes: No documented pressure sores. Recommend continuing pureed diet with Ensure Compact (220kcal, 9g protein) TID. If medically appropriate, would consider scheduled medication for bowel movement. Will continue to monitor with same goal. Nutrition Monitoring and Evaluation: Follow up every 5 days.
--- NOTE | 2020-04-03 12:26 | WPDNEURORHBP ---
Subjective Date/time seen: 04/03/20 12:26 Interval history: patient remains intermittently sleepy but alert enough to eat with assistance and she is eating enough that the feeding we can discontinue safely however her creatinine has risen to 1.7 and we will push oral fluids which probably the fact that she is not drinking enough and we have not been giving the tube feeding for couple of days Patient denies any headache nausea vomiting chest pain shortness of breath fever chills sore throat had the left hemiplegia significant and we need to work on it Review of Systems Review of Systems: All systems reviewed & are unremarkable except as noted in HPI and below Functional Status Transfers Ability Ability to Transfer In/Out of Chair: Maximum Assistance X 1 Exam Const: General: comfortable and no acute distress HENMT: General nose exam: Normal nares present Eyes: General: appearance normal, both eyes and all related structures Neck: Neck: supple and no JVD Resp: Effort & Inspection: normal respiratory effort Auscultation: clear to auscultation bilaterally Cardio: Rate: regular rate Rhythm: regular rhythm GI: GI Palp: Yes Soft to palpation Auscultation: normal bowel sounds Skin: General skin exam: normal color and no rashes or lesions noted Neuro: Other: patient is awake alert oriented times threes follows all commands left-sided hemiplegia is rather dense likewise the sensory deficit neglect has relatively improved visual field defect remains about the same she needs assistance in the activities of daily living to a significant degree Extrem: General: normal to inspection Psych: Mental Status: mental status grossly normal Objective Data Vital Signs Vital Signs: Vital Signs - 24 hr 04/02/20 14:00 04/02/20 21:12 04/02/20 21:20 Temperature 36.6 C 36.9 C Pulse Rate 60 74 66 Respiratory Rate 16 16 Blood Pressure 146/54 H 134/48 L Pulse Oximetry 97 96 04/03/20 06:00 04/03/20 08:47 04/03/20 08:50 Temperature 36.6 C Pulse Rate 59 L 61 61 Respiratory Rate 20 18 Blood Pressure 137/56 L 136/53 L Pulse Oximetry 100 96 Intake/Output Intake/Output: Intake & Output 03/31/20 04/01/20 04/02/20 04/03/20 23:59 23:59 23:59 23:59 Intake Total 720 1200 980 180 Output Total 0 Balance 720 1200 980 180 Meds/Results Medications: Active Medications Generic Name Dose Route Start Last Admin Trade Name Freq PRN Reason Stop Dose Admin Acetaminophen 650 mg 03/19/20 14:42 03/24/20 03:25 Tylenol Elixir FEED TUBE 650 mg Q6H PRN Administration Pain (Scale Score 4-6) Hydrocodone Bitart/Acetaminophen 0.5 tab 03/30/20 06:00 04/03/20 06:35 [place] 5-325 Mg FEED TUBE 0.5 tab Q6HR SIXTO Administration Amlodipine Besylate 10 mg 03/20/20 09:00 04/03/20 08:50 Norvasc FEED TUBE 10 mg DAILY SIXTO Administration Carvedilol 50 mg 03/20/20 21:00 04/03/20 08:50 Coreg FEED TUBE 50 mg Q12HR SIXTO Administration Clonidine HCl 0.2 mg 03/23/20 22:00 04/03/20 06:38 Catapres PO 0.2 mg Q8H SIXTO Administration Cyclobenzaprine HCl 5 mg 03/26/20 09:00 04/03/20 08:51 Flexeril PO 5 mg Q12HR SIXTO Administration Dexamethasone 4 mg 03/27/20 18:00 04/03/20 06:38 Dexamethasone Po PO 4 mg Q6HR SIXTO Administration Heparin Sodium (Porcine) 5,000 units 03/19/20 14:00 04/03/20 06:36 Heparin Sodium SUB-Q 5,000 units Q8H SIXTO Administration Hydralazine HCl 100 mg 03/28/20 14:00 04/03/20 06:37 Apresoline Tablet FEED TUBE 100 mg Q8H SIXTO Administration Pantoprazole Sodium 40 mg 03/28/20 21:00 04/03/20 08:51 Protonix PO 40 mg Q12HR SIXTO Administration Senna 8.6 mg 03/19/20 14:42 Senokot Tablet FEED TUBE DAILY PRN Constipation Sodium Chloride 2 spray 03/19/20 14:42 [place] Nasal [place] NASAL Q2H PRN Nasal Congestion Radiology Results: ITS Impressions Abdomen X-Ray 03/19/20 16:41 IMPRESSION:
[2020-04-03 14:00] VITALS: BP 138/57; PULSE 64; RESP 16; TEMP 36.7; O2SAT 96
[2020-04-03 15:04] LABS: Glucose Point of Care 225 (65-105)
--- NOTE | 2020-04-03 15:56 | PCOTNOTE ---
It is recommended that this patient, Maxine Fountain, have a drop-arm commode for home use. This patient is currently non-ambulatory and wheelchair dependent secondary to weakness, left hemiparesis, decreased head/neck and trunk control. This patient will be room confined at home secondary to the severity of deficits and requires use of a марина lift for dependent transfers. A drop-arm commode is recommended for home use in order to provide optimal safety for the patient and family with toileting tasks and transfers. The drop-arm commode will allow patient access to a toilet, will resolve patient's mobility limitations, and will provide safe access to a toilet within her home. I agree with and certify that the above recommendation is medically necessary.
[2020-04-03 18:12] LABS: Glucose Point of Care 187 (65-105)
[2020-04-03 21:08] VITALS: BP 137/55; PULSE 66; RESP 20; TEMP 36.4; O2SAT 100
[2020-04-03 21:28] LABS: Glucose Point of Care 215 (65-105)
[2020-04-03 21:58] VITALS: PULSE 64
[2020-04-04] MEDS: DEXAMETHASONE 4 MG TABLET PO ×3 (00:04→13:38)
[2020-04-04 06:00] VITALS: BP 156/68; PULSE 54; RESP 20; TEMP 36.4; O2SAT 98
[2020-04-04 06:03] LABS: Blood Urea Nitrogen 75 mg/dL (7-17); Calcium 9.7 mg/dL (8.4-10.2); Carbon Dioxide 23 mmol/L (22-30); Chloride 107 mmol/L (98-107); Estimated CRCL calculation 28 ml/min; Estimated Glomerular Filt Rate 42; Glucose 158 mg/dL (65-105); Potassium 5.3 mmol/L (3.4-5.0); Sodium 134 mmol/L (137-145)
[2020-04-04 06:48] LABS: Glucose Point of Care 149 (65-105)
[2020-04-04] MEDS: HEPARIN SODIUM 5,000 UNITS/ML VIAL 5000 UNITS SUB-Q ×3 (06:59→22:23)
[2020-04-04] MEDS: hydrALAZINE HCL 50 MG TABLET 100 MG FEED TUBE ×3 (06:59→22:23)
[2020-04-04] MEDS: CLONIDINE HCL 0.2 MG TABLET PO ×3 (07:01→22:24)
[2020-04-04 09:30] VITALS: PULSE 54
[2020-04-04] MEDS: carvediloL 25 MG TABLET 50 MG FEED TUBE ×2 (09:30→22:20)
[2020-04-04] MEDS: CYCLOBENZAPRINE HCL 5 MG TABLET PO ×2 (09:30→22:22)
[2020-04-04] MEDS: AMLODIPINE BESYLATE 5 MG TABLET 10 MG FEED TUBE (09:31)
[2020-04-04] MEDS: PANTOPRAZOLE 40 MG TABLET PO ×2 (09:31→22:22)
[2020-04-04 12:13] LABS: Glucose Point of Care 237 (65-105)
--- NOTE | 2020-04-04 13:22 | WPDNEURORHBP ---
Subjective Date/time seen: 04/04/20 13:22 Interval history: this 69-year-old Afro-Cymraes woman is here with right hemispheric significant large basal ganglia hemorrhage she remains alert enough to engage in therapy however her hemiplegia is not much better she did go through the family training and the family is adamant to take her home I will keep her on the [facility] for right now and repeat her head scan depending when was lots scan done see how much improvement in the shrinkage has occurred she denies any headache nausea vomiting chest pain or shortness of breath fever chills or sore throat Review of Systems Review of Systems: All systems reviewed & are unremarkable except as noted in HPI and below Functional Status Transfers Ability Ability to Transfer In/Out of Chair: Maximum Assistance X 1 Exam Const: General: no acute distress and in distress HENMT: General nose exam: Normal nares present Mouth: Yes moist mucous membranes Eyes: General: appearance normal, both eyes and all related structures Neck: Neck: supple and no JVD Resp: Effort & Inspection: normal respiratory effort Auscultation: clear to auscultation bilaterally Cardio: Rate: regular rate Rhythm: regular rhythm GI: GI Palp: Yes Soft to palpation Auscultation: normal bowel sounds Skin: General skin exam: normal color and no rashes or lesions noted Neuro: Other: patient is awake alert oriented times for judgment insight is limited because of rather significant bleed in the right side of the brain left-sided neglect is better however the hemiplegia has little improvement she got the family training and hoping to be discharged soon Extrem: General: normal to inspection Psych: Mental Status: mental status grossly normal Objective Data Vital Signs Vital Signs: Vital Signs - 24 hr 04/03/20 14:00 04/03/20 21:08 04/03/20 21:58 Temperature 36.7 C 36.4 C Pulse Rate 64 66 64 Respiratory Rate 16 20 Blood Pressure 138/57 L 137/55 L Pulse Oximetry 96 100 04/04/20 06:00 04/04/20 09:30 Temperature 36.4 C Pulse Rate 54 L 54 L Respiratory Rate 20 Blood Pressure 156/68 H Pulse Oximetry 98 Intake/Output Intake/Output: Intake & Output 04/01/20 04/02/20 04/03/20 04/04/20 23:59 23:59 23:59 23:59 Intake Total 1200 980 720 720 Output Total 0 Balance 1200 980 720 720 Meds/Results Medications: Active Medications Generic Name Dose Route Start Last Admin Trade Name Freq PRN Reason Stop Dose Admin Acetaminophen 650 mg 03/19/20 14:42 03/24/20 03:25 Tylenol Elixir FEED TUBE 650 mg Q6H PRN Administration Pain (Scale Score 4-6) Hydrocodone Bitart/Acetaminophen 0.5 tab 03/30/20 06:00 04/04/20 06:58 [place] 5-325 Mg FEED TUBE 0.5 tab Q6HR SIXTO Administration Amlodipine Besylate 10 mg 03/20/20 09:00 04/04/20 09:31 Norvasc FEED TUBE 10 mg DAILY SIXTO Administration Carvedilol 50 mg 03/20/20 21:00 04/04/20 09:30 Coreg FEED TUBE 50 mg Q12HR SIXTO Administration Clonidine HCl 0.2 mg 03/23/20 22:00 04/04/20 07:01 Catapres PO 0.2 mg Q8H SIXTO Administration Cyclobenzaprine HCl 5 mg 03/26/20 09:00 04/04/20 09:30 Flexeril PO 5 mg Q12HR SIXTO Administration Dexamethasone 4 mg 03/27/20 18:00 04/04/20 07:00 Dexamethasone Po PO 4 mg Q6HR SIXTO Administration Heparin Sodium (Porcine) 5,000 units 03/19/20 14:00 04/04/20 06:59 Heparin Sodium SUB-Q 5,000 units Q8H SIXTO Administration Hydralazine HCl 100 mg 03/28/20 14:00 04/04/20 06:59 Apresoline Tablet FEED TUBE 100 mg Q8H SIXTO Administration Pantoprazole Sodium 40 mg 03/28/20 21:00 04/04/20 09:31 Protonix PO 40 mg Q12HR SIXTO Administration Senna 8.6 mg 03/19/20 14:42 Senokot Tablet FEED TUBE DAILY PRN Constipation Sodium Chloride 2 spray 03/19/20 14:42 [place] Nasal [place] NASAL Q2H PRN Nasal Congestion Radiology Results: ITS Impressions Abdomen X
[2020-04-04 14:00] VITALS: BP 148/53; PULSE 65; RESP 20; TEMP 36.3; O2SAT 96
[2020-04-04 17:12] LABS: Glucose Point of Care 216 (65-105)
[2020-04-04 21:20] LABS: Glucose Point of Care 210 (65-105)
[2020-04-04 22:00] VITALS: BP 163/62; PULSE 76; RESP 18; TEMP 36.8; O2SAT 96
[2020-04-04 22:20] VITALS: PULSE 72
[2020-04-05] MEDS: DEXAMETHASONE 4 MG TABLET PO ×4 (01:00→18:04)
[2020-04-05 05:04] LABS: Potassium 5.4 mmol/L (3.4-5.0)
[2020-04-05 06:00] VITALS: BP 140/55; PULSE 61; RESP 18; TEMP 36.9; O2SAT 99
[2020-04-05] MEDS: CLONIDINE HCL 0.2 MG TABLET PO ×3 (06:06→21:04)
[2020-04-05] MEDS: HEPARIN SODIUM 5,000 UNITS/ML VIAL 5000 UNITS SUB-Q ×3 (06:06→21:09)
[2020-04-05] MEDS: hydrALAZINE HCL 50 MG TABLET 100 MG FEED TUBE ×3 (06:07→21:04)
[2020-04-05 06:09] LABS: Blood Urea Nitrogen 76 mg/dL (7-17); Calcium 9.1 mg/dL (8.4-10.2); Carbon Dioxide 23 mmol/L (22-30); Chloride 107 mmol/L (98-107); Estimated CRCL calculation 30 ml/min; Estimated Glomerular Filt Rate 45; Glucose 144 mg/dL (65-105); Sodium 135 mmol/L (137-145)
[2020-04-05 06:51] LABS: Glucose Point of Care 172 (65-105)
[2020-04-05 10:22] VITALS: PULSE 61
[2020-04-05] MEDS: carvediloL 25 MG TABLET 50 MG FEED TUBE ×2 (10:22→21:04)
[2020-04-05] MEDS: AMLODIPINE BESYLATE 5 MG TABLET 10 MG FEED TUBE (10:22)
[2020-04-05] MEDS: CYCLOBENZAPRINE HCL 5 MG TABLET PO ×2 (10:23→21:04)
[2020-04-05] MEDS: PANTOPRAZOLE 40 MG TABLET PO ×2 (10:23→21:04)
--- NOTE | 2020-04-05 12:42 | WPDNEURORHBP ---
Subjective Date/time seen: 04/05/20 12:42 Interval history: this 69-year-old Afro-Macanese woman is here on the acute rehab floor after having had significant right hemispheric intracranial hemorrhage which had left her with left hemiplegia left-sided field defect and the left-sided sensory deficit she is more alert with the use of the dexamethasone but is still has significant neurological deficit the family is not available for the training because of the brain but they will be here Thursday The patient denies any headache nausea vomiting chest pain shortness of breath fever chills or sore throat Review of Systems Review of Systems: All systems reviewed & are unremarkable except as noted in HPI and below Functional Status Transfers Ability Ability to Transfer In/Out of Chair: Maximum Assistance X 1 Exam HENMT: General nose exam: Normal nares present Mouth: Yes moist mucous membranes Eyes: General: appearance normal, both eyes and all related structures Neck: Neck: supple and no JVD Resp: Effort & Inspection: normal respiratory effort Auscultation: clear to auscultation bilaterally Cardio: Rate: regular rate Rhythm: regular rhythm GI: GI Palp: Yes Soft to palpation Auscultation: normal bowel sounds Skin: General skin exam: normal color and no rashes or lesions noted Neuro: Other: patient is awake alert will oriented in time place and person with significantly improved left-sided neglect however is left with the left visual field defect and the left-sided hemiplegia she is working with the therapy and able to eat fairly well Extrem: General: normal to inspection Psych: Mental Status: mental status grossly normal Objective Data Vital Signs Vital Signs: Vital Signs - 24 hr 04/05/20 14:00 04/05/20 21:04 04/05/20 22:00 Temperature 36.9 C 36.6 C Pulse Rate 62 62 70 Respiratory Rate 18 18 Blood Pressure 154/64 H 130/50 L Pulse Oximetry 96 98 04/06/20 06:00 04/06/20 08:00 Temperature 35.7 C L Pulse Rate 62 62 Respiratory Rate 18 18 Blood Pressure 163/73 H Pulse Oximetry 95 95 Intake/Output Intake/Output: Intake & Output 04/03/20 04/04/20 04/05/20 04/06/20 23:59 23:59 23:59 23:59 Intake Total 720 1140 1380 360 Output Total 0 Balance 720 1140 1380 360 Meds/Results Medications: Active Medications Generic Name Dose Route Start Last Admin Trade Name Freq PRN Reason Stop Dose Admin Acetaminophen 650 mg 03/19/20 14:42 03/24/20 03:25 Tylenol Elixir FEED TUBE 650 mg Q6H PRN Administration Pain (Scale Score 4-6) Hydrocodone Bitart/Acetaminophen 0.5 tab 03/30/20 06:00 04/06/20 05:45 [place] 5-325 Mg FEED TUBE 0.5 tab Q6HR SIXTO Administration Amlodipine Besylate 10 mg 03/20/20 09:00 04/06/20 08:58 Norvasc FEED TUBE 10 mg DAILY SIXTO Administration Carvedilol 50 mg 03/20/20 21:00 04/06/20 08:58 Coreg FEED TUBE 50 mg Q12HR SIXTO Administration Clonidine HCl 0.2 mg 03/23/20 22:00 04/06/20 05:45 Catapres PO 0.2 mg Q8H SIXTO Administration Cyclobenzaprine HCl 5 mg 03/26/20 09:00 04/06/20 08:57 Flexeril PO 5 mg Q12HR SIXTO Administration Dexamethasone 4 mg 03/27/20 18:00 04/06/20 05:44 Dexamethasone Po PO 4 mg Q6HR SIXTO Administration Dexamethasone 4 mg 04/06/20 17:00 Dexamethasone Po PO BID SIXTO Hydralazine HCl 100 mg 03/28/20 14:00 04/06/20 05:45 Apresoline Tablet FEED TUBE 100 mg Q8H SIXTO Administration Pantoprazole Sodium 40 mg 03/28/20 21:00 04/06/20 08:58 Protonix PO 40 mg Q12HR SIXTO Administration Senna 8.6 mg 03/19/20 14:42 Senokot Tablet FEED TUBE DAILY PRN Constipation Sodium Chloride 2 spray 03/19/20 14:42 [place] Nasal Counsel[facility] NASAL Q2H PRN Nasal Congestion Radiology Results: ITS Impressions Abdomen X-Ray 03/19/20 16:41 IMPRESSION: 1. PEG tube projecting over the stomach. Head CT 04/05/20 09:50 IMPRESSION: 1. Maturing
[2020-04-05 13:30] VITALS: BMI 10.0
[2020-04-05 13:42] LABS: Glucose Point of Care 198 (65-105)
[2020-04-05 14:00] VITALS: BP 154/64; PULSE 62; RESP 18; TEMP 36.9; O2SAT 96
[2020-04-05 17:00] LABS: Glucose Point of Care 191 (65-105)
[2020-04-05 21:04] VITALS: PULSE 62
[2020-04-05 21:56] LABS: Glucose Point of Care 234 (65-105)
[2020-04-05 22:00] VITALS: BP 130/50; PULSE 70; RESP 18; TEMP 36.6; O2SAT 98
[2020-04-06] MEDS: DEXAMETHASONE 4 MG TABLET PO ×3 (00:32→17:25)
[2020-04-06] MEDS: HEPARIN SODIUM 5,000 UNITS/ML VIAL 5000 UNITS SUB-Q (05:44)
[2020-04-06] MEDS: CLONIDINE HCL 0.2 MG TABLET PO ×3 (05:45→21:29)
[2020-04-06] MEDS: hydrALAZINE HCL 50 MG TABLET 100 MG FEED TUBE ×3 (05:45→21:29)
[2020-04-06 06:00] VITALS: BP 163/73; PULSE 62; RESP 18; TEMP 35.7; O2SAT 95
[2020-04-06 07:04] LABS: Glucose Point of Care 145 (65-105)
[2020-04-06 08:00] VITALS: PULSE 62; RESP 18; O2SAT 95
[2020-04-06] MEDS: CYCLOBENZAPRINE HCL 5 MG TABLET PO ×2 (08:57→20:37)
[2020-04-06] MEDS: PANTOPRAZOLE 40 MG TABLET PO ×2 (08:58→20:38)
[2020-04-06] MEDS: carvediloL 25 MG TABLET 50 MG FEED TUBE ×2 (08:58→20:36)
[2020-04-06] MEDS: AMLODIPINE BESYLATE 5 MG TABLET 10 MG FEED TUBE (08:58)
[2020-04-06 11:04] VITALS: BMI 10.0
--- NOTE | 2020-04-06 11:53 | PCDIET ---
Nutrition Follow-Up Complete: Nutrition Diagnosis: Inadequate oral intake related to decreased appetite/dysphagia as evidenced by intakes 50% on pureed diet with PEG placement. Nutrition Goal: Patient to meet estimated nutritional needs. Goal met. Patient consuming 75-100% of recorded meals on pureed diet + Ensure Compact TID with meals. No new recommendations at this time. Last recorded weight is 69.6 kg which is stable. Bowel Motility: Last documented BM on 04/04/20. Labs Reviewed: Glu (145) Meds Noted: Dexamethasone, Protonix, Senna prn Additional Notes: No documented pressure sores. Incision to abdomen (PEG site). Will continue to monitor with same goal. Nutrition Monitoring and Evaluation: Follow up every 5 days.
[2020-04-06 13:11] LABS: Glucose Point of Care 181 (65-105)
[2020-04-06] MEDS: SENNOSIDES 8.6 MG TABLET FEED TUBE (13:23)
[2020-04-06 14:00] VITALS: BP 151/62; PULSE 68; RESP 18; TEMP 36.6; O2SAT 100
--- NOTE | 2020-04-06 14:32 | WPDNEURORHBP ---
Subjective Date/time seen: 04/06/20 14:32 Interval history: patient is complaining of more tightness and pain right leg more so than the left leg and swollen I had order the venous Doppler earlier it shows DVT the peroneal veins [id number] in the left side since the patient has significant intracranial hemorrhage on the right side she will not be candidate for systemic anticoagulation I the only option I have is to us a vascular surgeon to put the IVC filter and I have told the nurse to go ahead and call Dr. uche hedrick for placement of the IVC filter The patient denies chest pain shortness of breath fever chills or sore throat Review of Systems Review of Systems: All systems reviewed & are unremarkable except as noted in HPI and below Functional Status Transfers Ability Ability to Transfer In/Out of Chair: Maximum Assistance X 1 Exam Const: General: comfortable and no acute distress HENMT: General nose exam: Normal nares present Mouth: Yes moist mucous membranes Eyes: General: appearance normal, both eyes and all related structures Neck: Neck: supple and no JVD Resp: Effort & Inspection: normal respiratory effort Auscultation: clear to auscultation bilaterally Cardio: Rate: regular rate Rhythm: regular rhythm GI: GI Palp: Yes Soft to palpation Auscultation: normal bowel sounds Skin: General skin exam: normal color and no rashes or lesions noted Neuro: Other: patient is awake alert much more so than before and she has a dense left-sided hemiplegia along with the visual field defect neglect has improved Extrem: Other: patient's left leg is tender more swollen than the right leg actually the right leg seems to be more tender and painful than the left in any event we know now that she does have a left sided DVT below the knee in the peroneal Psych: Mental Status: mental status grossly normal Objective Data Vital Signs Vital Signs: Vital Signs - 24 hr 04/05/20 21:04 04/05/20 22:00 04/06/20 06:00 Temperature 36.6 C 35.7 C L Pulse Rate 62 70 62 Respiratory Rate 18 18 Blood Pressure 130/50 L 163/73 H Pulse Oximetry 98 95 04/06/20 08:00 Temperature Pulse Rate 62 Respiratory Rate 18 Blood Pressure Pulse Oximetry 95 Intake/Output Intake/Output: Intake & Output 04/03/20 04/04/20 04/05/20 04/06/20 23:59 23:59 23:59 23:59 Intake Total 720 1140 1380 360 Output Total 0 Balance 720 1140 1380 360 Meds/Results Medications: Active Medications Generic Name Dose Route Start Last Admin Trade Name Freq PRN Reason Stop Dose Admin Acetaminophen 650 mg 03/19/20 14:42 03/24/20 03:25 Tylenol Elixir FEED TUBE 650 mg Q6H PRN Administration Pain (Scale Score 4-6) Hydrocodone Bitart/Acetaminophen 0.5 tab 03/30/20 06:00 04/06/20 13:21 [place] 5-325 Mg FEED TUBE 0.5 tab Q6HR SIXTO Administration Amlodipine Besylate 10 mg 03/20/20 09:00 04/06/20 08:58 Norvasc FEED TUBE 10 mg DAILY SIXTO Administration Carvedilol 50 mg 03/20/20 21:00 04/06/20 08:58 Coreg FEED TUBE 50 mg Q12HR SIXTO Administration Clonidine HCl 0.2 mg 03/23/20 22:00 04/06/20 13:21 Catapres PO 0.2 mg Q8H SIXTO Administration Cyclobenzaprine HCl 5 mg 03/26/20 09:00 04/06/20 08:57 Flexeril PO 5 mg Q12HR SIXTO Administration Dexamethasone 4 mg 04/06/20 17:00 Dexamethasone Po PO 04/07/20 17:01 BIDWM SIXTO Dexamethasone 4 mg 04/08/20 09:00 Dexamethasone Po PO 04/09/20 09:01 DAILY SIXTO Hydralazine HCl 100 mg 03/28/20 14:00 04/06/20 13:23 Apresoline Tablet FEED TUBE 100 mg Q8H SIXTO Administration Pantoprazole Sodium 40 mg 03/28/20 21:00 04/06/20 08:58 Protonix PO 40 mg Q12HR SIXTO Administration Senna 8.6 mg 03/19/20 14:42 04/06/20 13:23 Senokot Tablet FEED TUBE 8.6 mg DAILY PRN Administration Constipation Sodium Chloride 2 spray 03/19/20 14:42 [place] Nasal [place] NASAL Q2H PRN Nasal Congestion
[2020-04-06] MEDS: SODIUM POLYSTYRENE SULFONONATE 15 GM/60 ML BTL 30 GM PO (17:26)
[2020-04-06 17:43] LABS: Glucose Point of Care 170 (65-105)
[2020-04-06 20:36] VITALS: PULSE 72
[2020-04-06 21:39] LABS: Glucose Point of Care 173 (65-105)
[2020-04-06 22:00] VITALS: BP 162/57; PULSE 93; RESP 18; TEMP 37.1; O2SAT 98
[2020-04-07] MEDS: hydrALAZINE HCL 50 MG TABLET 100 MG FEED TUBE ×3 (05:32→20:56)
[2020-04-07] MEDS: CLONIDINE HCL 0.2 MG TABLET PO ×3 (05:32→20:56)
[2020-04-07 06:00] VITALS: BP 177/84; PULSE 81; RESP 18; TEMP 36.9; O2SAT 98
[2020-04-07 06:51] LABS: Glucose Point of Care 132 (65-105)
[2020-04-07] MEDS: AMLODIPINE BESYLATE 5 MG TABLET 10 MG FEED TUBE (09:11)
[2020-04-07] MEDS: DEXAMETHASONE 4 MG TABLET PO ×2 (09:11→18:59)
[2020-04-07 09:12] VITALS: PULSE 81
[2020-04-07] MEDS: CYCLOBENZAPRINE HCL 5 MG TABLET PO ×2 (09:12→20:23)
[2020-04-07] MEDS: PANTOPRAZOLE 40 MG TABLET PO ×2 (09:12→20:23)
[2020-04-07] MEDS: carvediloL 25 MG TABLET 50 MG FEED TUBE ×2 (09:12→20:23)
--- NOTE | 2020-04-07 11:07 | PM.CNGS ---
Assessment and Plan Assessment and plan (1) Basal ganglia hemorrhage: Code(s): I61.0 - Nontraumatic intracerebral hemorrhage in hemisphere, subcortical Status: Acute Assessment and Plan: cont rehab (2) DVT (deep venous thrombosis): Code(s): I82.409 - Acute embolism and thrombosis of unspecified deep veins of unspecified lower extremity Status: Acute Assessment and Plan: will setup for IVC filter placement on 04/09 (3) Hypertension: Code(s): I10 - Essential (primary) hypertension Status: Acute Assessment and Plan: cont mgmt per primary team History of Present Illness Consult details Consult date: 04/07/20 Reason for consult: other (LLE DVT s/p hemmorhagic stroke) Requesting physician: Shashank Sorto MD Narrative: Pt is a 69 y/o F c multiple med issues currently in rehab s/p R sided hemorrhagic stroke. Pt currently c L sided neglect. Pt doing relatively well c rehab but began to c/o some lower ext pain and swelling. Pt had venous duplex yest showing L peroneal vein DVT. Given her recent hemorrhagic stroke pt is not a candidate for anticoagulation and consult placed for filter placement. History is largely obtained via chart as pt poor historian and difficulty vebalizing at this time. Review of Systems Review of Systems: ROS unobtainable: Yes unobtainable due to medical condition [facility] Social History Social History Smoking packs per day: 1 Smoking cigarettes per day: 20.0 Years smoked: 20 Smoking pack-years: 20.00 Smoking status: Former smoker Second hand tobacco smoke exposure: No Alcohol intake: unknown Substance use: never Substance use type: does not use Gender identity (if verbalized by the patient): Female Spiritual care concerns: No Agree to blood products: Yes Meds Home Medications and Allergies Home Medications Medication Instructions Recorded Confirmed Type acetaminophen 650 mg FEEDING TUBE Q6H PRN 03/19/20 03/19/20 History amlodipine 10 mg FEEDING TUBE DAILY 03/19/20 03/19/20 History carvedilol [Coreg] 25 mg FEEDING TUBE BID 03/19/20 03/19/20 History clonidine HCl 0.2 mg G-TUBE Q8H 03/19/20 03/19/20 History heparin (porcine) 5,000 unit SUBCUT Q8H 03/19/20 03/19/20 History hydralazine 100 mg FEEDING TUBE Q8H 03/19/20 03/19/20 History senna 8.6 mg PO DAILY 03/19/20 03/19/20 History sennosides [Senokot] 8.6 mg FEEDING TUBE DAILY PRN 03/19/20 03/19/20 History sodium chloride [Sal[place] Nasal] 2 spray INTRANASAL Q2H PRN 03/19/20 03/19/20 History Drop Arm Bedside Commode #1 each 04/03/20 Rx Allergies Allergy/AdvReac Type Severity Reaction Status Date / Time No Known Allergies Allergy Unverified 10/29/17 13:55 Vital Signs Vital Signs - 24 hr 04/06/20 14:00 04/06/20 20:36 04/06/20 22:00 Temperature 36.6 C 37.1 C Pulse Rate 68 72 93 Respiratory Rate 18 18 Blood Pressure 151/62 H 162/57 H Pulse Oximetry 100 98 04/07/20 06:00 04/07/20 09:12 Temperature 36.9 C Pulse Rate 81 81 Respiratory Rate 18 Blood Pressure 177/84 H Pulse Oximetry 98 Exam Const: General: no acute distress HENMT: Mouth: Yes moist mucous membranes Eyes: General: appearance normal, both eyes and all related structures Pupils: Equal, round and reactive pupils present Neck: Neck: supple and no JVD Lymphatic: lymphadenopathy not noted Resp: Effort & Inspection: normal respiratory effort Auscultation: clear to auscultation bilaterally Cardio: Rate: regular rate Rhythm: regular rhythm GI: GI Palp: Yes Soft to palpation, No Tenderness to palpation present (GI), No Guarding due to palpation present (GI) and No Hernia present Skin: General skin exam: normal color Neuro: Cognition (Neuro): abnormal cognition Motor exam (neuro): Motor abnormalites present Extrem: General: edema Results Labs Result diagrams: 04/03/20 04:30 04/05/20 04:29 [place]
--- NOTE | 2020-04-07 11:47 | WPDNEURORHBP ---
Subjective Date/time seen: reviewed,right lower extremitywith DVT with intracranial bleed, filter is planned on thursday, no complains of chest pain04/07/20 11:47 Review of Systems Review of Systems: All systems reviewed & are unremarkable except as noted in HPI and below Functional Status Transfers Ability Ability to Transfer In/Out of Chair: Maximum Assistance X 1 Exam Const: General: no acute distress HENMT: Head: normal to inspection Ears: hearing grossly normal bilaterally General nose exam: No nasal discharge present Face and sinus: normal facial exam Mouth: Yes Normal oral and palatal mucosa present Eyes: General: appearance normal, both eyes and all related structures Neck: Neck: full ROM Resp: Effort & Inspection: normal respiratory effort Auscultation: clear to auscultation bilaterally Cardio: Rate: regular rate Rhythm: regular rhythm GI: Auscultation: normal bowel sounds Skin: General skin exam: no rashes or lesions noted Neuro: General: patient oriented x3 Cranial nerves: Yes CN's II-XII intact bilaterally Speech: normal speech Motor exam (neuro): Abnormal motor strength present (left hemiplegia) Deep tendon reflexes (DTR's): Right triceps reflex intensity grade: 1+, Left triceps reflex intensity grade: 2+, Rt Biceps (C5, C6): 1+, Left biceps reflex intensity grade: 2+, Right brachioradialis reflex intensity grade: 1+, Left brachioradialis reflex intensity grade: 2+, Right patellar reflex intensity grade: 1+, Left patellar reflex intensity grade: 2+, Right ankle reflex intensity grade: 1+ and Left ankle reflex intensity grade: 2+ Plantar Reflex Responses: downgoing: right and upgoing (positive Babinski): left Extrem: General: other (LLE swollen) Objective Data Vital Signs Vital Signs: Vital Signs - 24 hr 04/06/20 14:00 04/06/20 20:36 04/06/20 22:00 Temperature 36.6 C 37.1 C Pulse Rate 68 72 93 Respiratory Rate 18 18 Blood Pressure 151/62 H 162/57 H Pulse Oximetry 100 98 04/07/20 06:00 04/07/20 09:12 Temperature 36.9 C Pulse Rate 81 81 Respiratory Rate 18 Blood Pressure 177/84 H Pulse Oximetry 98 Intake/Output Intake/Output: Intake & Output 04/04/20 04/05/20 04/06/20 04/07/20 23:59 23:59 23:59 23:59 Intake Total 1140 1380 840 358 Output Total 0 Balance 1140 1380 840 358 Meds/Results Medications: Active Medications Generic Name Dose Route Start Last Admin Trade Name Freq PRN Reason Stop Dose Admin Acetaminophen 650 mg 03/19/20 14:42 03/24/20 03:25 Tylenol Elixir FEED TUBE 650 mg Q6H PRN Administration Pain (Scale Score 4-6) Hydrocodone Bitart/Acetaminophen 0.5 tab 03/30/20 06:00 04/07/20 05:32 [place] 5-325 Mg FEED TUBE 0.5 tab Q6HR SIXTO Administration Amlodipine Besylate 10 mg 03/20/20 09:00 04/07/20 09:11 Norvasc FEED TUBE 10 mg DAILY SIXTO Administration Carvedilol 50 mg 03/20/20 21:00 04/07/20 09:12 Coreg FEED TUBE 50 mg Q12HR SIXTO Administration Clonidine HCl 0.2 mg 03/23/20 22:00 04/07/20 05:32 Catapres PO 0.2 mg Q8H SIXTO Administration Cyclobenzaprine HCl 5 mg 03/26/20 09:00 04/07/20 09:12 Flexeril PO 5 mg Q12HR SIXTO Administration Dexamethasone 4 mg 04/06/20 17:00 04/07/20 09:11 Dexamethasone Po PO 04/07/20 17:01 4 mg BIDWM SIXTO Administration Dexamethasone 4 mg 04/08/20 09:00 Dexamethasone Po PO 04/09/20 09:01 DAILY SIXTO Hydralazine HCl 100 mg 03/28/20 14:00 04/07/20 05:32 Apresoline Tablet FEED TUBE 100 mg Q8H SIXTO Administration Pantoprazole Sodium 40 mg 03/28/20 21:00 04/07/20 09:12 Protonix PO 40 mg Q12HR SIXTO Administration Senna 8.6 mg 03/19/20 14:42 04/06/20 13:23 Senokot Tablet FEED TUBE 8.6 mg DAILY PRN Administration Constipation Sodium Chloride 2 spray 03/19/20 14:42 [place] Nasal [place] NASAL Q2H PRN Nasal Congestion Radiology Results: ITS Impressions Abdomen X-Ray 03/19/20 16:41
[2020-04-07 11:57] LABS: Glucose Point of Care 128 (65-105)
[2020-04-07 14:00] VITALS: BP 161/64; PULSE 60; RESP 16; TEMP 37; O2SAT 95
[2020-04-07 17:14] LABS: Glucose Point of Care 134 (65-105)
[2020-04-07 20:23] VITALS: PULSE 60
[2020-04-07 21:18] LABS: Glucose Point of Care 167 (65-105)
[2020-04-07 22:00] VITALS: BP 174/75; PULSE 66; RESP 16; TEMP 36.9; O2SAT 92
[2020-04-08 06:00] VITALS: BP 163/63; PULSE 60; RESP 16; TEMP 36.5; O2SAT 99
[2020-04-08] MEDS: hydrALAZINE HCL 50 MG TABLET 100 MG FEED TUBE ×3 (06:29→20:54)
[2020-04-08] MEDS: CLONIDINE HCL 0.2 MG TABLET PO ×3 (06:30→20:44)
[2020-04-08 06:56] LABS: Glucose Point of Care 126 (65-105)
[2020-04-08 08:43] VITALS: PULSE 60
[2020-04-08 08:43] LABS: Blood Urea Nitrogen 52 mg/dL (7-17); Calcium 9.2 mg/dL (8.4-10.2); Carbon Dioxide 23 mmol/L (22-30); Chloride 106 mmol/L (98-107); Estimated CRCL calculation 32 ml/min; Estimated Glomerular Filt Rate 49; Glucose 148 mg/dL (65-105); Potassium 4.5 mmol/L (3.4-5.0); Sodium 134 mmol/L (137-145)
[2020-04-08] MEDS: CYCLOBENZAPRINE HCL 5 MG TABLET PO ×2 (08:43→20:54)
[2020-04-08] MEDS: AMLODIPINE BESYLATE 5 MG TABLET 10 MG FEED TUBE (08:43)
[2020-04-08] MEDS: carvediloL 25 MG TABLET 50 MG FEED TUBE ×2 (08:43→20:43)
[2020-04-08] MEDS: DEXAMETHASONE 4 MG TABLET PO (08:44)
[2020-04-08] MEDS: PANTOPRAZOLE 40 MG TABLET PO ×2 (08:44→20:46)
[2020-04-08 12:11] LABS: Glucose Point of Care 120 (65-105)
[2020-04-08] MEDS: ACETAMINOPHEN 500 MG TABLET 1000 MG PO (13:21)
[2020-04-08 14:00] VITALS: BP 150/60; PULSE 58; RESP 16; TEMP 36.7; O2SAT 96
[2020-04-08 16:54] LABS: Glucose Point of Care 190 (65-105)
[2020-04-08 20:43] VITALS: PULSE 66
[2020-04-08 22:00] VITALS: BP 158/56; PULSE 66; RESP 16; TEMP 36.9; O2SAT 95
[2020-04-09] VITALS (8 sets, daily range): BP systolic 139–187; BP diastolic 54–80; PULSE 51–70; RESP 11–18; TEMP 36.2–37; O2SAT 93–100
[2020-04-09] MEDS: hydrALAZINE HCL 50 MG TABLET 100 MG FEED TUBE ×3 (06:06→20:15)
[2020-04-09] MEDS: CLONIDINE HCL 0.2 MG TABLET PO ×3 (06:07→20:15)
[2020-04-09 07:03] LABS: Glucose Point of Care 114 (65-105)
--- NOTE | 2020-04-09 11:45 | PC.NURSE ---
To Cardiac [facility] Fixer via bed.
--- NOTE | 2020-04-09 11:45 | PCPTNOTE ---
The patient treatment was not able to be completed on 04/09/2020 due to off unit for procedure. Patient missed 60 minutes of physical therapy. Will plan to continue treatment per plan of care.
--- NOTE | 2020-04-09 12:35 | PC.NURSE ---
Back from cardiac lab via bed.
--- NOTE | 2020-04-09 12:35 | P.OP_ITS ---
Procedure Note - Detailed Date of procedure: 04/09/20 Pre-op diagnosis: CVA, DVT Post-op diagnosis: same Procedure performed: IVC Filter Placement Description of procedure: * Patient was brought back to blender laborer suite. She was placed supine blender laborer table. Time-out was done to confirm patient procedure. Her right groin was prepped and draped in sterile fashion using chlorhexidine prep. SonoSite ultrasound was used to identify the right femoral vein. This was visualized as a compressible vessel just medial to the right femoral artery. 1% lidocaine was infiltrated directly over this area. An 18 gauge introducer needle was then advanced under ultrasound guidance directly into the lumen of the right femoral vein. Dark nonpulsatile blood was aspirated. A 0.035 in guidewire was advanced through the needle under fluoroscopic guidance. The guidewire advanced smoothly and was visualized advancing up into the inferior vena cava. The needle was withdrawn leaving the guidewire in place. A small linsey incision was made at the insertion site using an 11 blade scalpel. The 6 [place] dilator and sheath were then advanced over the guidewire under fluoroscopic guidance. The sheath was advanced up to the L3 vertebral body, and then once the sheath was at the upper portion of the L3 vertebral body, the dilator and guidewire were removed. The IVC filter was then inserted into the end of the sheath and then the plunger was used to carefully advanced the filter up the length of the sheath. Once the filter was visualized under fluoroscopy at the tip of the sheath, the sheath was slowly withdrawn to allow the filter to deploy. Once the filter was completely expanded, the sheath was removed and pressure was applied at the insertion site. One final fluoroscopic image was obtained visualizing the IVC filter and proper orientation overlying the L3 vertebral body. After holding pressure for 5 minutes, there is no further blood loss and a sterile dressing was applied. Implants: Trapease IVC Filter Anesthesia: local Surgeon: Femi Champion DO Estimated blood loss (mL): 2 Complications: No immediate complications Condition: stable Disposition: ICU Findings: IVC accessed through right femoral vein approach under u/s and fluoroscopic guidance. IVC filter deployed at level of L3 Vertebral body.
[2020-04-09 13:09] LABS: Glucose Point of Care 97 (65-105)
--- NOTE | 2020-04-09 14:41 | PCOTNOTE ---
This patient was not seen for occupational therapy this date secondary to procedure for IVC filter placement. Patient did not receive full therapy minutes this date.
[2020-04-09] MEDS: carvediloL 25 MG TABLET 50 MG FEED TUBE ×2 (14:42→20:16)
[2020-04-09] MEDS: AMLODIPINE BESYLATE 5 MG TABLET 10 MG FEED TUBE (14:42)
[2020-04-09] MEDS: CYCLOBENZAPRINE HCL 5 MG TABLET PO ×2 (14:44→20:19)
[2020-04-09] MEDS: DEXAMETHASONE 4 MG TABLET PO (14:44)
[2020-04-09] MEDS: PANTOPRAZOLE 40 MG TABLET PO ×2 (14:46→20:17)
[2020-04-09] MEDS: ACETAMINOPHEN 500 MG TABLET 1000 MG PO (14:46)
--- NOTE | 2020-04-09 17:18 | WPDNEURORHBP ---
Subjective Date/time seen: 04/09/20 17:18 S/P implantation of Trapease IVC filter under local anaesthesia without complications through right femoral vein and filter at the level of L3 vertebral body Review of Systems Review of Systems: All systems reviewed & are unremarkable except as noted in HPI and below Functional Status Transfers Ability Ability to Transfer In/Out of Chair: Maximum Assistance X 1 Exam Const: General: alert and anxious Nutritional Appearance: malnourished Eyes: General: appearance normal, both eyes and all related structures Neck: Neck: full ROM Resp: Effort & Inspection: normal respiratory effort and able to speak in complete sentences Auscultation: clear to auscultation bilaterally Cardio: Rate: regular rate Rhythm: regular rhythm GI: Auscultation: normal bowel sounds Skin: General skin exam: no rashes or lesions noted Neuro: General: oriented to person, oriented to place and no meningeal signs Motor exam (neuro): Abnormal motor strength present (left hemiplegia) Extrem: Left lower extremity: lower leg (swollen) Objective Data Vital Signs Vital Signs: Vital Signs - 24 hr 04/08/20 20:43 04/08/20 22:00 04/09/20 06:00 Temperature 36.9 C 36.3 C L Pulse Rate 66 66 55 L Respiratory Rate 16 18 Blood Pressure 158/56 H 154/54 H Pulse Oximetry 95 97 04/09/20 12:15 04/09/20 12:30 04/09/20 13:00 Temperature 36.5 C Pulse Rate 52 L 57 L 55 L Respiratory Rate 12 11 L 16 Blood Pressure 166/76 H 163/77 H 150/72 H Pulse Oximetry 100 100 97 04/09/20 14:00 04/09/20 14:42 Temperature 36.2 C L Pulse Rate 51 L 52 L Respiratory Rate 18 Blood Pressure 139/57 L Pulse Oximetry 98 Intake/Output Intake/Output: Intake & Output 04/06/20 04/07/20 04/08/20 04/09/20 23:59 23:59 23:59 23:59 Intake Total 840 828 830 0 Output Total 0 Balance 840 828 830 0 Meds/Results Medications: Active Medications Generic Name Dose Route Start Last Admin Trade Name Freq PRN Reason Stop Dose Admin Acetaminophen 650 mg 03/19/20 14:42 03/24/20 03:25 Tylenol Elixir FEED TUBE 650 mg Q6H PRN Administration Pain (Scale Score 4-6) Acetaminophen 1,000 mg 04/08/20 12:00 04/09/20 14:46 Tylenol Tablet PO 1,000 mg NOON SIXTO Administration Hydrocodone Bitart/Acetaminophen 0.5 tab 04/08/20 21:00 04/09/20 15:23 [place] 5-325 Mg PO Not Given Q12HR SIXTO Amlodipine Besylate 10 mg 03/20/20 09:00 04/09/20 14:42 Norvasc FEED TUBE 10 mg DAILY SIXTO Administration Carvedilol 50 mg 03/20/20 21:00 04/09/20 14:42 Coreg FEED TUBE 50 mg Q12HR SIXTO Administration Clonidine HCl 0.2 mg 03/23/20 22:00 04/09/20 16:53 Catapres PO 0.2 mg Q8H SIXTO Administration Cyclobenzaprine HCl 5 mg 03/26/20 09:00 04/09/20 14:44 Flexeril PO 5 mg Q12HR SIXTO Administration Hydralazine HCl 100 mg 03/28/20 14:00 04/09/20 16:53 Apresoline Tablet FEED TUBE 100 mg Q8H SIXTO Administration Pantoprazole Sodium 40 mg 03/28/20 21:00 04/09/20 14:46 Protonix PO 40 mg Q12HR SIXTO Administration Senna 8.6 mg 03/19/20 14:42 04/06/20 13:23 Senokot Tablet FEED TUBE 8.6 mg DAILY PRN Administration Constipation Sodium Chloride 2 spray 03/19/20 14:42 [place] Nasal [place] NASAL Q2H PRN Nasal Congestion Radiology Results: ITS Impressions Abdomen X-Ray 03/19/20 16:41 IMPRESSION: 1. PEG tube projecting over the stomach. Head CT 04/05/20 09:50 IMPRESSION: 1. Maturing intraparenchymal hemorrhage centered in the right basal ganglia with slight improvement of surrounding vasogenic edema and mass effect. Persistent midline shift measuring 5 mm to the left. 2: Chronic right thalamic and bilateral lacunar infarctions. 3: Chronic age-related findings. Venous Doppler Study 04/06/20 14:21 IMPRESSION: 1. Deep venous thrombosis below the knee in one of the paired left peroneal veins of the calf. Findings were
[2020-04-09 17:19] LABS: Glucose Point of Care 120 (65-105)
[2020-04-09 19:55] LABS: Glucose Point of Care 125 (65-105)
[2020-04-10 04:22] LABS: Basophils Percent Auto 0.1 % (0.2-1.2); Hematocrit 37.3 % (37.0-47.0); Hemoglobin 12.2 g/dL (12.0-15.0); Immature Granulocyte Absolute 0.12 K/mm3 (0.00-0.031); Immature Granulocyte Percent A 1.1 % (0-0.5); Lymphocytes Absolute Auto 0.35 K/mm3 (0.9-3.2); Lymphocytes Percent Auto 3.2 % (18.3-44.2); Mean Corpuscular HGB Conc 32.7 g/dl (32-36); Mean Corpuscular Hemoglobin 26.8 pg (26-34); Mean Corpuscular Volume 81.8 fl (80-100); Mean Platelet Volume 9.9 fl (7.4-10.4); Monocytes Absolute Auto 0.4 K/mm3 (0.1-0.6); Monocytes Percent Auto 3.5 % (2.6-8.5); Neutrophils Absolute Auto 10.1 K/mm3 (1.3-6.7); Neutrophils Percent Auto 92.1 % (45.5-73.1); Platelet Count Result 216 k/mm3 (150-375); Red Blood Count 4.56 M/mm3 (4.2-5.4); Red Cell Distribution Width 14.8 % (11.5-14.5); White Blood Count 10.9 K/mm3 (4.5-10.0)
[2020-04-10 04:36] LABS: Blood Urea Nitrogen 47 mg/dL (7-17); Calcium 9.3 mg/dL (8.4-10.2); Carbon Dioxide 23 mmol/L (22-30); Chloride 106 mmol/L (98-107); Estimated CRCL calculation 35 ml/min; Estimated Glomerular Filt Rate 54; Glucose 125 mg/dL (65-105); Potassium 4.8 mmol/L (3.4-5.0); Sodium 133 mmol/L (137-145)
[2020-04-10] MEDS: CLONIDINE HCL 0.2 MG TABLET PO ×3 (05:50→22:26)
[2020-04-10] MEDS: hydrALAZINE HCL 50 MG TABLET 100 MG FEED TUBE ×3 (05:51→22:25)
[2020-04-10 06:00] VITALS: BP 157/65; PULSE 57; RESP 18; TEMP 36.6; O2SAT 100
[2020-04-10 06:58] LABS: Glucose Point of Care 120 (65-105)
[2020-04-10] MEDS: AMLODIPINE BESYLATE 5 MG TABLET 10 MG FEED TUBE (09:20)
[2020-04-10 09:21] VITALS: PULSE 57
[2020-04-10] MEDS: carvediloL 25 MG TABLET 50 MG FEED TUBE ×2 (09:21→20:29)
[2020-04-10] MEDS: PANTOPRAZOLE 40 MG TABLET PO ×2 (09:21→20:30)
[2020-04-10] MEDS: CYCLOBENZAPRINE HCL 5 MG TABLET PO ×2 (09:26→20:32)
[2020-04-10 11:04] VITALS: BMI 10.0
[2020-04-10] MEDS: ACETAMINOPHEN 500 MG TABLET 1000 MG PO (11:11)
--- NOTE | 2020-04-10 11:16 | PCDIET ---
Nutrition Follow-Up Complete: Nutrition Diagnosis: Inadequate oral intake related to decreased appetite/dysphagia as evidenced by intakes 50% on pureed diet with PEG placement. Nutrition Goal: Patient to meet estimated nutritional needs. Goal met. Average intake since 04/07/20 has been 67% of meals and patient taking Ensure Compact supplements. Recommend continuing Ensure Compact TID and diabetic, pureed diet. Glucose levels currently well controlled. Last recorded weight is 67.9 kg which is increased from last review. Bowel Motility: +BM on 04/08/20. Labs Reviewed: Glu (120), BUN (47), Cr (1.2), Na (133) Meds Noted: Protonix, Senna Additional Notes: POD #1 s/p IVC filter placement. Left upper buttock abrasion; no documented pressure ulcers. Will continue to monitor with same goal. Nutrition Monitoring and Evaluation: Follow up every 5 days.
[2020-04-10 12:28] LABS: Glucose Point of Care 139 (65-105)
[2020-04-10 13:35] VITALS: BMI 10.0
[2020-04-10 14:00] VITALS: BP 163/64; PULSE 57; RESP 17; TEMP 36.8; O2SAT 96
--- NOTE | 2020-04-10 15:57 | WPDNEURORHBP ---
Subjective Date/time seen: 04/10/20 15:57 Interval history: this 69-year-old woman is here after having had rather large intracranial hemorrhage over the right cerebral hemisphere which has left her with left hemiplegia left visual field defect left neglect she has improved however hemiplegia has not improved much the patient did have the IVC filter placed because of the DVT and will be going home tomorrow not there are no symptoms here Review of Systems Review of Systems: All systems reviewed & are unremarkable except as noted in HPI and below Functional Status Transfers Ability Ability to Transfer In/Out of Chair: Maximum Assistance X 1 Exam Const: General: comfortable and no acute distress HENMT: General nose exam: Normal nares present Mouth: Yes moist mucous membranes Eyes: General: appearance normal, both eyes and all related structures Neck: Neck: supple and no JVD Resp: Effort & Inspection: normal respiratory effort Auscultation: clear to auscultation bilaterally Cardio: Rate: regular rate Rhythm: regular rhythm GI: GI Palp: Yes Soft to palpation Auscultation: normal bowel sounds Skin: General skin exam: normal color and no rashes or lesions noted Neuro: Other: she remains awake alert will oriented however of course she does have a right hemispheric deficit which is dense and unable to recall the sequence of events Extrem: General: normal to inspection Psych: Mental Status: mental status grossly normal Other: short-term memory deficit and decreased judgment insight Objective Data Vital Signs Vital Signs: Vital Signs - 24 hr 04/09/20 20:16 04/09/20 22:00 04/10/20 06:00 Temperature 37.0 C 36.6 C Pulse Rate 70 70 57 L Respiratory Rate 18 18 Blood Pressure 187/80 H 157/65 H Pulse Oximetry 93 100 04/10/20 09:21 04/10/20 14:00 Temperature 36.8 C Pulse Rate 57 L 57 L Respiratory Rate 17 Blood Pressure 163/64 H Pulse Oximetry 96 Intake/Output Intake/Output: Intake & Output 04/07/20 04/08/20 04/09/20 04/10/20 23:59 23:59 23:59 23:59 Intake Total 828 830 240 340 Balance 828 830 240 340 Meds/Results Medications: Active Medications Generic Name Dose Route Start Last Admin Trade Name Freq PRN Reason Stop Dose Admin Acetaminophen 650 mg 03/19/20 14:42 03/24/20 03:25 Tylenol Elixir FEED TUBE 650 mg Q6H PRN Administration Pain (Scale Score 4-6) Acetaminophen 1,000 mg 04/08/20 12:00 04/10/20 11:11 Tylenol Tablet PO 1,000 mg NOON SIXTO Administration Hydrocodone Bitart/Acetaminophen 0.5 tab 04/08/20 21:00 04/10/20 09:26 [place] 5-325 Mg PO 0.5 tab Q12HR SIXTO Administration Amlodipine Besylate 10 mg 03/20/20 09:00 04/10/20 09:20 Norvasc FEED TUBE 10 mg DAILY SIXTO Administration Carvedilol 50 mg 03/20/20 21:00 04/10/20 09:21 Coreg FEED TUBE 50 mg Q12HR SIXTO Administration Clonidine HCl 0.2 mg 03/23/20 22:00 04/10/20 15:43 Catapres PO 0.2 mg Q8H SIXTO Administration Cyclobenzaprine HCl 5 mg 03/26/20 09:00 04/10/20 09:26 Flexeril PO 5 mg Q12HR SIXTO Administration Hydralazine HCl 100 mg 03/28/20 14:00 04/10/20 15:43 Apresoline Tablet FEED TUBE 100 mg Q8H SIXTO Administration Pantoprazole Sodium 40 mg 03/28/20 21:00 04/10/20 09:21 Protonix PO 40 mg Q12HR SIXTO Administration Senna 8.6 mg 03/19/20 14:42 04/06/20 13:23 Senokot Tablet FEED TUBE 8.6 mg DAILY PRN Administration Constipation Sodium Chloride 2 spray 03/19/20 14:42 [place] Nasal [place] NASAL Q2H PRN Nasal Congestion Radiology Results: ITS Impressions Abdomen X-Ray 03/19/20 16:41 IMPRESSION: 1. PEG tube projecting over the stomach. Head CT 04/05/20 09:50 IMPRESSION: 1. Maturing intraparenchymal hemorrhage centered in the right basal ganglia with slight improvement of surrounding vasogenic edema and mass effect. Persistent midline shift measuring 5 mm to the left. 2: Chronic
[2020-04-10 17:30] LABS: Glucose Point of Care 128 (65-105)
[2020-04-10 20:11] LABS: Glucose Point of Care 154 (65-105)
[2020-04-10 20:29] VITALS: PULSE 66
[2020-04-10 22:00] VITALS: BP 146/58; PULSE 60; RESP 18; TEMP 37.2; O2SAT 97
[2020-04-11] MEDS: hydrALAZINE HCL 50 MG TABLET 100 MG FEED TUBE ×2 (05:48→15:04)
[2020-04-11] MEDS: CLONIDINE HCL 0.2 MG TABLET PO ×2 (05:48→15:04)
[2020-04-11 06:00] VITALS: BP 161/65; PULSE 61; RESP 18; TEMP 37.4; O2SAT 95
[2020-04-11 06:59] LABS: Glucose Point of Care 101 (65-105)
[2020-04-11 09:29] VITALS: PULSE 61
[2020-04-11] MEDS: carvediloL 25 MG TABLET 50 MG FEED TUBE (09:29)
[2020-04-11] MEDS: PANTOPRAZOLE 40 MG TABLET PO (09:29)
[2020-04-11] MEDS: AMLODIPINE BESYLATE 5 MG TABLET 10 MG FEED TUBE (09:29)
[2020-04-11] MEDS: CYCLOBENZAPRINE HCL 5 MG TABLET PO (09:35)
--- NOTE | 2020-04-11 12:26 | WPDNEURORHBP ---
Subjective Date/time seen: 04/11/20 12:26 Interval history: rehab will be going home today with home health and the family's care she is awake and alert much better however remains with a fixed neurological deficit of left-sided hemiplegia and left-sided visual field defect she denies any headache nausea vomiting chest pain shortness of breath fever chills or sore throat Review of Systems Review of Systems: All systems reviewed & are unremarkable except as noted in HPI and below Functional Status Transfers Ability Ability to Transfer In/Out of Chair: Maximum Assistance X 1 Exam Const: General: comfortable and no acute distress HENMT: General nose exam: Normal nares present Mouth: Yes moist mucous membranes Eyes: General: appearance normal, both eyes and all related structures Neck: Neck: supple and no JVD Resp: Effort & Inspection: normal respiratory effort Auscultation: clear to auscultation bilaterally Cardio: Rate: regular rate Rhythm: regular rhythm GI: GI Palp: Yes Soft to palpation Auscultation: normal bowel sounds Skin: General skin exam: normal color and no rashes or lesions noted Neuro: Other: patient is awake alert and well oriented time place and person follows all commands able to eat fairly well the fixed left-sided hemiplegia is a the same the visual field defect roughly about the same however neglect has improved Extrem: Other: the swelling of the lower extremities is stable Psych: Mental Status: mental status grossly normal Objective Data Vital Signs Vital Signs: Vital Signs - 24 hr 04/10/20 14:00 04/10/20 20:29 04/10/20 22:00 Temperature 36.8 C 37.2 C Pulse Rate 57 L 66 60 Respiratory Rate 17 18 Blood Pressure 163/64 H 146/58 H Pulse Oximetry 96 97 04/11/20 06:00 04/11/20 09:29 Temperature 37.4 C Pulse Rate 61 61 Respiratory Rate 18 Blood Pressure 161/65 H Pulse Oximetry 95 Intake/Output Intake/Output: Intake & Output 04/08/20 04/09/20 04/10/20 04/11/20 23:59 23:59 23:59 23:59 Intake Total 830 240 860 120 Balance 830 240 860 120 Meds/Results Medications: Active Medications Generic Name Dose Route Start Last Admin Trade Name Freq PRN Reason Stop Dose Admin Acetaminophen 650 mg 03/19/20 14:42 03/24/20 03:25 Tylenol Elixir FEED TUBE 650 mg Q6H PRN Administration Pain (Scale Score 4-6) Acetaminophen 1,000 mg 04/08/20 12:00 04/10/20 11:11 Tylenol Tablet PO 1,000 mg NOON SIXTO Administration Hydrocodone Bitart/Acetaminophen 0.5 tab 04/08/20 21:00 04/11/20 09:35 [place] 5-325 Mg PO 0.5 tab Q12HR SIXTO Administration Amlodipine Besylate 10 mg 03/20/20 09:00 04/11/20 09:29 Norvasc FEED TUBE 10 mg DAILY SIXTO Administration Carvedilol 50 mg 03/20/20 21:00 04/11/20 09:29 Coreg FEED TUBE 50 mg Q12HR SIXTO Administration Clonidine HCl 0.2 mg 03/23/20 22:00 04/11/20 05:48 Catapres PO 0.2 mg Q8H SIXTO Administration Cyclobenzaprine HCl 5 mg 03/26/20 09:00 04/11/20 09:35 Flexeril PO 5 mg Q12HR SIXTO Administration Hydralazine HCl 100 mg 03/28/20 14:00 04/11/20 05:48 Apresoline Tablet FEED TUBE 100 mg Q8H SIXTO Administration Pantoprazole Sodium 40 mg 03/28/20 21:00 04/11/20 09:29 Protonix PO 40 mg Q12HR SIXTO Administration Senna 8.6 mg 03/19/20 14:42 04/06/20 13:23 Senokot Tablet FEED TUBE 8.6 mg DAILY PRN Administration Constipation Sodium Chloride 2 spray 03/19/20 14:42 [place] Nasal [place] NASAL Q2H PRN Nasal Congestion Radiology Results: ITS Impressions Abdomen X-Ray 03/19/20 16:41 IMPRESSION: 1. PEG tube projecting over the stomach. Head CT 04/05/20 09:50 IMPRESSION: 1. Maturing intraparenchymal hemorrhage centered in the right basal ganglia with slight improvement of surrounding vasogenic edema and mass effect. Persistent midline shift measuring 5 mm to the left. 2: Chronic right thalamic and bilateral lacunar in
[2020-04-11 12:38] LABS: Glucose Point of Care 101 (65-105)
[2020-04-11] MEDS: ACETAMINOPHEN 500 MG TABLET 1000 MG PO (12:59)
[2020-04-11 14:00] VITALS: BP 176/69; PULSE 72; RESP 18; TEMP 36.6; O2SAT 100
--- NOTE | 2020-04-13 18:56 | DS_ITS ---
DATE OF DISCHARGE: 04/11/2020 DISCHARGE ACUTE REHABILITATION DIAGNOSIS: Stroke with etiological diagnosis of the right basal ganglia hemorrhagic stroke. DISCHARGE ACTIVE COMORBID CONDITIONS: 1. Hypertension. 2. Hyperlipidemia. 3. Osteopenia. 4. Previous stroke. REASON FOR ADMISSION: A 69-year-old right-handed female with past medical history of hypertension, hyperlipidemia, osteopenia, and previous stroke, presented to [facility] on 03/09/2020, subsequent to being found on the floor by her daughter. EMS was called to the scene. At that time, her blood pressure was 230 systolic. She presented to the ER with a left-sided weakness, right gaze deviation and mild dysarthria. CT scan documented right basal ganglia hemorrhage of 5.4 x 4 cm in the greatest dimension with mass effect and effacement of the right lateral ventricle leading to 4 mm leftward midline shift, along with the trace right interventricular hemorrhage without hydrocephalus. CT scan was negative for vascular malformation. She was transferred to [facility] on the same day, admitted to ICU under neurological service. Neurosurgical service was also consulted, though there was no intervention. Hemorrhage was due to the hypertensive emergency. All anticoagulants and antiplatelets were held. During the hospital, she experienced hyperglycemia, acute kidney injury, and hypertensive emergency. She passed the swallowing test, was placed on diet with thin liquid, NG tubes to increase nutritional intake and PEG tube was appraised on 03/16/2020, with a goal of tube feeding. She continued to have left-sided hemineglect, dysarthria, decreased motor control, impaired balance, impaired judgment. She was discharged on subcu heparin for DVT prophylaxis. She has not traveled outside the states or in any states where the COVID is active and also has not been exposed to any person. LEVEL OF FUNCTION AT THE TIME OF ADMISSION: She was dependent for eating, required substantial assistance for oral hygiene. She was dependent for toileting, bathing, upper body dressing, lower body dressing, footwear. She was substantial assistance for rolling in bed, dependent for sit to lying, lying to sitting, sit to stand, chair transfers. She was unable to toilet transfer, car transfer, walking 10 feet, 50 feet with 2 turns, 150 feet, 10 feet on uneven surfaces, curb or step, 4 steps, 12 steps, picking up object. She was unable to take the wheelchair even for 50 feet. ANTICIPATED REHAB GOALS: At the time of admission were to make her setup for the eating and oral hygiene, required substantial assistance for toileting, partial assistance for bathing and upper body dressing, substantial assistance for lower body dressing, partial for the footwear, rolling in bed, sit to lying. Lying to sit, sit to stand, chair transfer, toilet transfer, car transfer, walking 10 feet, 50 feet with 2 turns, requiring substantial assistance for walking 150 feet, but partial assistance for 10 feet on uneven surfaces, curb or step, 4 steps, 12 steps, substantial for 12 steps, partial for picking up object and at least become independent for the wheelchair for 50 feet and 150 feet. LEVEL OF FUNCTION AT THE TIME OF DISCHARGE: The patient improved to the level that she required partial assistance for eating and oral hygiene, became dependent for the toileting, but required substantial assistance for the bathing, upper body dressing, lower body dressing, footwear, rolling in bed. She remained dependent for sit to lying. She required substantial assistance for the lying to sitting, sit to stand, chair transfer. She was dependent for the toilet transfer. She was unable to take car transfer, 10 feet walking, 50 feet walking with 2 turns, 150 feet walking, walking 10 feet on unev
--- NOTE | 2020-05-22 06:10 | DS_ITS ---
DATE OF DISCHARGE: 04/16/2020 ADDENDUM: DISCHARGE MEDICATIONS: Includes: 1. Tylenol 1000 mg p.o. at noon. 2. Carvedilol 50 mg q.12 hours. 3. Clonidine 0.2 mg q.8 hours. 4. Cyclobenzaprine 5 mg q.12 hours. 5. Hydrocodone 0.5 tablets q.12 hours with Tylenol. 6. Pantoprazole 40 mg q.12 hours. 7. drop-arm bedside commode. 8. Amlodipine 10 mg daily. 9. Hydralazine 100 mg feeding tube q.8 hours. 10. She was taken off the carvedilol 25 mg b.i.d. 11. Clonidine 0.2 mg q.8 hours. 12. Heparin 5000 subcu q.8 hours. 13. Senna 8.6 mg p.o. daily. 14. Sennoside 8.6 mg per feeding tube daily. 15. Sodium chloride 2 sprays q.2 hours. 16. She was also taking about 650 mg per feeding tube q.6 hours. D I MT: Henry RAMOS
== END 2020-04-11 15:30 | disposition home health service (06) | DRG 40 ==
PROVIDERS: Surgery; Admitting Provider Psychiatry & Neurology Neurology; PCP Internal Medicine; Visit Provider Psychiatry & Neurology Neurology
PROC: 06H03DZ Insertion of Intraluminal Device into Inferior Vena Cava, Percutaneous Approach (ICD-10-PCS; principal; 2020-04-09 08:30)
DX: I69.154 Hemiplegia and hemiparesis following nontraumatic intracerebral hemorrhage affecting left non-dominant side (principal); G93.6 Cerebral edema; I82.452 Acute embolism and thrombosis of left peroneal vein; I69.198 Other sequelae of nontraumatic intracerebral hemorrhage; I69.122 Dysarthria following nontraumatic intracerebral hemorrhage; H51.8 Other specified disorders of binocular movement; E78.5 Hyperlipidemia, unspecified; I10 Essential (primary) hypertension; M85.80 Other specified disorders of bone density and structure, unspecified site; R73.9 Hyperglycemia, unspecified; Z87.891 Personal history of nicotine dependence; Z93.1 Gastrostomy status
CPT/HCPCS: 36415; 37191; 70450; 74018; 80048; 80061; 83036; 85025; 92507; 92523; 92526; 93970; 97110; 97112; 97116; 97129; 97130; 97163; 97167; 97530; 97535; A9270; C1880; J1644; J7040; J8540